=== PATIENT | male | born 1950 | race Caucasian/White ===

== ENCOUNTER 2017-02-19 15:02 | Inpatient (IN) | payer MEDICARE ==
[~2017-02-19] VITALS: Ht 190.5 cm; Wt 95.5 kg
[2017-02-19] MEDS ORDERED: SODIUM CHLORIDE FLUSH 10ML SYR IVF ONE (15:30)
[2017-02-19 16:12] LABS: ASPARTATE AMINO TRANSFERASE 58 U/L (15-37); BLOOD UREA NITROGEN 28 mg/dL (7-18)
[2017-02-19 16:18] LABS: IS PT STATUS REG ER OR PRE ER? YES
[2017-02-19] MEDS ORDERED: NITROGLYCERIN SINGLE TAB 0.4 MG SL ONE (16:57)
[2017-02-19] MEDS ORDERED: NITROGLYCERIN 0.4 MG BOTTLE (25 TABS) SL PRN ×2 (17:00→21:00)
[2017-02-19] MEDS ORDERED: SODIUM CHLORIDE 0.9%, 500ML IVBOLUS ONE (17:00)
[2017-02-19] MEDS ORDERED: OMNIPAQUE 350 MG/ML, 100ML BOTTLE ONE (17:44)
[2017-02-19] MEDS ORDERED: [UNRECOGNIZED DRUG - CODE] PO (18:06)
[2017-02-19] MEDS ORDERED: ASCO10004 PO (18:06)
[2017-02-19] MEDS ORDERED: CHOL10003 PO ×2 (18:06)
[2017-02-19] MEDS ORDERED: MAGN400T36 PO (18:06)
[2017-02-19] MEDS ORDERED: CLON0.3T4 PO (18:06)
[2017-02-19] MEDS ORDERED: [UNRECOGNIZED DRUG - CODE] PO (18:06)
[2017-02-19] MEDS ORDERED: NIAC500T9 PO (18:06)
[2017-02-19] MEDS ORDERED: CLOP75TA22 PO (18:06)
[2017-02-19] MEDS ORDERED: FUROSEMIDE 40 MG/4 ML ONE (20:29)
[2017-02-19] MEDS ORDERED: FUROSEMIDE 40 MG/4 ML IV ONE (20:30)
[2017-02-19] MEDS: LOSARTAN 50MG TABLET PO SCH (20:58)
[2017-02-19] MEDS: CARVEDILOL 6.25 MG TABLET PO SCH (20:58)
[2017-02-19] MEDS ORDERED: LABETALOL 5MG/ML, 20ML IVPush PRN (21:00)
[2017-02-19] MEDS ORDERED: ONDANSETRON 2MG/ML, 2ML IVPush PRN (21:00)
[2017-02-19] MEDS ORDERED: POLYETHYLENE GLYCOL 17 GM PACKET PO PRN (21:00)
[2017-02-19] MEDS ORDERED: morphine SULFATE 10 MG/ML, 1ML IVPush PRN (21:00)
[2017-02-19] MEDS ORDERED: ACETAMINOPHEN 325 MG TABLET PO PRN (21:00)
[2017-02-19] MEDS ORDERED: BISACODYL 10 MG SUPP PR PRN (21:00)
[2017-02-19] MEDS ORDERED: OXYcodone IR 5MG TABLET PO PRN (21:00)
[2017-02-19 22:34] VITALS: BP 152/84
[2017-02-19] MEDS: HEPARIN 5,000 UNITS/ML, 1ML SQ SCH (23:54)
[2017-02-19] MEDS: MAGNESIUM OXIDE 400 MG TABLET PO SCH (23:54)
[2017-02-19] MEDS: CHOLECALCIFEROL 1,000 UNIT TABLET PO SCH (23:54)
[2017-02-20 00:46] LABS: IS PT STATUS REG ER OR PRE ER? NO
[2017-02-20 01:49] VITALS: BP 150/88
[2017-02-20] MEDS: CARVEDILOL 6.25 MG TABLET PO SCH ×2 (05:41→17:00)
[2017-02-20] MEDS: ASPIRIN 325 MG TABLET EC PO SCH (05:41)
[2017-02-20 06:36] VITALS: BP 154/100
[2017-02-20 06:44] LABS: BLOOD UREA NITROGEN 27 mg/dL (7-18)
[2017-02-20 06:48] LABS: ASPARTATE AMINO TRANSFERASE 44 U/L (15-37)
[2017-02-20 06:51] LABS: IS PT STATUS REG ER OR PRE ER? NO
[2017-02-20] MEDS: SENNA/DOCUSATE TABLET PO SCH (09:00)
[2017-02-20] MEDS: NIACIN 500 MG TABLET.ER PO SCH (09:31)
[2017-02-20] MEDS: CHOLECALCIFEROL 1,000 UNIT TABLET PO SCH ×2 (09:31→20:46)
[2017-02-20] MEDS: HEPARIN 5,000 UNITS/ML, 1ML SQ SCH ×2 (09:31→16:59)
[2017-02-20] MEDS: FUROSEMIDE 20 MG/2 ML IV SCH ×2 (09:31→17:00)
[2017-02-20] MEDS: CLOPIDOGREL 75 MG TABLET PO SCH (09:32)
[2017-02-20] MEDS: LOSARTAN 50MG TABLET PO SCH ×2 (09:32→20:45)
[2017-02-20] MEDS: MAGNESIUM OXIDE 400 MG TABLET PO SCH ×2 (09:32→20:45)
[2017-02-20] MEDS: POTASSIUM CHLORIDE 20 MEQ TAB.ER.PRT PO SCH (09:32)
[2017-02-20] MEDS ORDERED: POTASSIUM CHLORIDE 20 MEQ TAB.ER.PRT PO ONE (11:00)
[2017-02-20] MEDS ORDERED: CEFTRIAXONE 1,000 MG in SODIUM CHLORIDE 0.9% 50 ML IV SCH (12:00)
[2017-02-20] MEDS: FLUTICASONE/VILANTEROL 200-25MCG/INH INH SCH (12:03)
[2017-02-20] MEDS: GUAIFENESIN ER 600 MG TABLET PO SCH ×2 (12:04→20:45)
[2017-02-20] MEDS: DOXYCYCLINE 100 MG in DEXTROSE 5% 250 ML IV SCH (12:04)
[2017-02-20 13:31] VITALS: BP 139/95
[2017-02-20] MEDS: CEFTRIAXONE PMX 1GM/50ML 50 ML IV SCH (14:08)
[2017-02-20 20:28] VITALS: BP 179/137
[2017-02-20 22:25] VITALS: BP 165/119
[2017-02-21] VITALS (7 sets, daily range): BP systolic 153–197; BP diastolic 93–121
[2017-02-21] MEDS: hydrALAzine 20 MG/ML, 1ML IVPush PRN ×3 (00:08→13:23)
[2017-02-21] MEDS: DOXYCYCLINE 100 MG in DEXTROSE 5% 250 ML IV SCH ×2 (00:08→12:35)
[2017-02-21] MEDS: HEPARIN 5,000 UNITS/ML, 1ML SQ SCH ×3 (01:15→17:26)
[2017-02-21] MEDS: CARVEDILOL 6.25 MG TABLET PO SCH (05:04)
[2017-02-21] MEDS: ASPIRIN 325 MG TABLET EC PO SCH (05:04)
[2017-02-21] MEDS: SENNA/DOCUSATE TABLET PO SCH (09:00)
[2017-02-21] MEDS: FUROSEMIDE 20 MG/2 ML IV SCH ×2 (09:57→17:25)
[2017-02-21] MEDS: FLUTICASONE/VILANTEROL 200-25MCG/INH INH SCH (09:58)
[2017-02-21] MEDS: MAGNESIUM OXIDE 400 MG TABLET PO SCH ×2 (09:59→20:22)
[2017-02-21] MEDS: GUAIFENESIN ER 600 MG TABLET PO SCH ×2 (09:59→20:22)
[2017-02-21] MEDS: NIACIN 500 MG TABLET.ER PO SCH (09:59)
[2017-02-21] MEDS: CHOLECALCIFEROL 1,000 UNIT TABLET PO SCH ×2 (09:59→20:22)
[2017-02-21] MEDS: POTASSIUM CHLORIDE 20 MEQ TAB.ER.PRT PO SCH (09:59)
[2017-02-21] MEDS: LOSARTAN 50MG TABLET PO SCH (09:59)
[2017-02-21] MEDS: CLOPIDOGREL 75 MG TABLET PO SCH (10:00)
[2017-02-21] MEDS ORDERED: CARVEDILOL 12.5 MG TABLET PO SCH (11:30)
[2017-02-21] MEDS: CEFTRIAXONE PMX 1GM/50ML 50 ML IV SCH (14:24)
[2017-02-22] MEDS: HEPARIN 5,000 UNITS/ML, 1ML SQ SCH ×2 (00:37→08:02)
[2017-02-22] MEDS: DOXYCYCLINE 100 MG in DEXTROSE 5% 250 ML IV SCH (00:37)
[2017-02-22 00:41] VITALS: BP 189/99
[2017-02-22] MEDS: hydrALAzine 20 MG/ML, 1ML IVPush PRN ×2 (00:53→06:41)
[2017-02-22 02:00] VITALS: BP 160/99
[2017-02-22 05:47] LABS: BLOOD UREA NITROGEN 25 mg/dL (7-18)
[2017-02-22 06:31] VITALS: BP 189/125
[2017-02-22] MEDS: ASPIRIN 325 MG TABLET EC PO SCH (08:00)
[2017-02-22] MEDS: CLOPIDOGREL 75 MG TABLET PO SCH (08:02)
[2017-02-22] MEDS: POTASSIUM CHLORIDE 20 MEQ TAB.ER.PRT PO SCH (08:02)
[2017-02-22] MEDS: CHOLECALCIFEROL 1,000 UNIT TABLET PO SCH (08:02)
[2017-02-22] MEDS: FUROSEMIDE 20 MG/2 ML IV SCH (08:02)
[2017-02-22] MEDS: GUAIFENESIN ER 600 MG TABLET PO SCH (08:02)
[2017-02-22] MEDS: MAGNESIUM OXIDE 400 MG TABLET PO SCH (08:02)
[2017-02-22] MEDS: NIACIN 500 MG TABLET.ER PO SCH (08:02)
[2017-02-22] MEDS: FLUTICASONE/VILANTEROL 200-25MCG/INH INH SCH (08:02)
[2017-02-22] MEDS: SENNA/DOCUSATE TABLET PO SCH (08:03)
[2017-02-22] MEDS ORDERED: ASPIRIN 81 MG TABLET CHEW PO SCH (09:00)
[2017-02-22] MEDS ORDERED: FLUT1BLS INH (11:20)
[2017-02-22] MEDS ORDERED: ASPI-515 PO (11:20)
[2017-02-22] MEDS ORDERED: FAMO-79 PO (11:20)
[2017-02-22] MEDS ORDERED: PRED5TAB PO (11:20)
[2017-02-22] MEDS ORDERED: LOSA50TA2 PO (11:20)
[2017-02-22] MEDS ORDERED: LORA10TA3 PO (11:20)
[2017-02-22] MEDS ORDERED: FURO40TA6 PO (11:20)
[2017-02-22] MEDS ORDERED: CEFD300C37 PO (11:20)
[2017-02-22] MEDS ORDERED: POTA20TA6 PO (11:20)
[2017-02-22] MEDS ORDERED: GUAI5SYR PO (11:20)
[2017-02-22] MEDS ORDERED: DOXY-168 PO (11:20)
[2017-02-22] MEDS ORDERED: CARV12.52 PO (11:20)
[2017-02-22] MEDS ORDERED: ATOR10TA9 PO (11:30)
[2017-02-22 11:50] VITALS: BP 128/71
== END 2017-02-22 13:00 | disposition home or self-care (01) | DRG 682 ==
LOC: ED 18:28 → EDIP 18:59 → 5SO 22:20 → DCLOUNGE 02-22 11:55
PROVIDERS: ADMIT Internal Medicine; ATTEND Internal Medicine
DX: N17.0 Acute kidney failure with tubular necrosis (principal); I50.23 Acute on chronic systolic (congestive) heart failure; I16.9 Hypertensive crisis, unspecified; I11.0 Hypertensive heart disease with heart failure; I25.2 Old myocardial infarction; R59.0 Localized enlarged lymph nodes; I25.10 Atherosclerotic heart disease of native coronary artery without angina pectoris; L40.9 Psoriasis, unspecified; J45.909 Unspecified asthma, uncomplicated; Z77.098 Contact with and (suspected) exposure to other hazardous, chiefly nonmedicinal, chemicals; Z86.73 Personal history of transient ischemic attack (TIA), and cerebral infarction without residual deficits
CPT/HCPCS: 36415; 71010; 71275; 80048; 80053; 80061; 81003; 83036; 83605; 83735; 83880; 84145; 84439; 84443; 84484; 85025; 93005; 93306; 96365; 96366; 96375; J0696; J1644; J1940; J7060; Q9967; J0360; J7040; J7050

== ENCOUNTER → 2017-03-11 | Outpatient (CLI) | payer MEDICARE ==
[~2017-03-11] MED LIST: ASCO10004 PO; ASPI-515 PO; ATOR10TA9 PO; CARV12.52 PO; CEFD300C37 PO; CHOL10003 PO; CLON0.3T4 PO; CLOP75TA22 PO; DOXY-168 PO; FAMO-79 PO; FLUT1BLS INH; FURO40TA6 PO; GUAI5SYR PO; LORA10TA3 PO; LOSA50TA2 PO; MAGN400T36 PO; NIAC500T9 PO; POTA20TA6 PO; PRED5TAB PO; [UNRECOGNIZED DRUG - CODE] PO; [UNRECOGNIZED DRUG - CODE] PO
== END | disposition home or self-care (01) ==
LOC: PETCFH 12:39
PROVIDERS: ATTEND Internal Medicine Critical Care Medicine
DX: I71.4 Abdominal aortic aneurysm, without rupture (principal); R59.1 Generalized enlarged lymph nodes; I51.7 Cardiomegaly
CPT/HCPCS: 78815; A9552

== ENCOUNTER → 2017-03-17 | Outpatient (CLI) | payer MEDICARE | LOC: CARD 15:00 | PROVIDERS: ATTEND Internal Medicine Critical Care Medicine | DX: Z02.9 Encounter for administrative examinations, unspecified (principal) ==

== ENCOUNTER 2017-04-22 16:20 | Inpatient (IN) | payer MEDICARE ==
[~2017-04-22] VITALS: Ht 190.5 cm; Wt 93.0 kg
[~2017-04-22 16:20] MED LIST changes: -CLOP75TA22 PO; +CLOP75TA52 PO; -DOXY-168 PO; +DOXY100T10 PO
[2017-04-22] MEDS ORDERED: SODIUM CHLORIDE FLUSH 10ML SYR IVF ONE (16:30)
[2017-04-22] MEDS ORDERED: ALBUTEROL SULFATE 2.5 MG/3 ML NPPB ONE (16:30)
[2017-04-22] MEDS ORDERED: ALBUTEROL SULFATE 2.5 MG/3 ML ONE (17:01)
[2017-04-22 17:06] LABS: ASPARTATE AMINO TRANSFERASE 144 U/L (15-37); BLOOD UREA NITROGEN 28 mg/dL (7-18)
[2017-04-22 17:10] LABS: IS PT STATUS REG ER OR PRE ER? YES
[2017-04-22] MEDS ORDERED: ASPIRIN 81 MG TABLET CHEW ONE ×2 (17:15→17:19)
[2017-04-22 17:21] LABS: HEMATOCRIT 46.7 % (39.2-51.8); HEMOGLOBIN 15.4 g/dL (13.7-18.0); WHITE BLOOD COUNT 11.3 x10^3/uL (3.4-10)
[2017-04-22 17:23] LABS: DIFF TOTAL CELLS COUNTED 100 CELL DIFF
[2017-04-22 17:25] LABS: VERIFY COUNTS? YES
[2017-04-22] MEDS ORDERED: ASPIRIN 81 MG TABLET CHEW PO ONE (17:30)
[2017-04-22] MEDS ORDERED: POLYETHYLENE GLYCOL 17 GM PACKET PO PRN (19:00)
[2017-04-22] MEDS ORDERED: ONDANSETRON 2MG/ML, 2ML IVPush PRN (19:00)
[2017-04-22] MEDS ORDERED: BISACODYL 10 MG SUPP PR PRN (19:00)
[2017-04-22] MEDS ORDERED: FUROSEMIDE 40 MG/4 ML ONE (19:24)
[2017-04-22] MEDS: FUROSEMIDE 40 MG/4 ML IV SCH (19:42)
[2017-04-22] MEDS ORDERED: hydrALAzine 20 MG/ML, 1ML ONE (19:51)
[2017-04-22] MEDS: CARVEDILOL 25 MG TABLET PO SCH (22:48)
[2017-04-22] MEDS: HEPARIN 5,000 UNITS/ML, 1ML SQ SCH (22:48)
[2017-04-22] MEDS: MAGNESIUM OXIDE 400 MG TABLET PO SCH (22:49)
[2017-04-22] MEDS: ATORVASTATIN 10 MG TABLET PO SCH (22:49)
[2017-04-22] MEDS: LOSARTAN 50MG TABLET PO SCH (22:49)
[2017-04-22] MEDS: FAMOTIDINE 20 MG TABLET PO SCH (22:50)
[2017-04-22] MEDS: CHOLECALCIFEROL 1,000 UNIT TABLET PO SCH (22:50)
[2017-04-22 22:56] VITALS: BP 162/90
[2017-04-22 23:23] LABS: IS PT STATUS REG ER OR PRE ER? NO
[2017-04-23] MEDS: SODIUM CHLORIDE FLUSH 10ML SYR IVF SCH ×2 (00:20→08:07)
[2017-04-23 00:50] VITALS: BP 157/99
[2017-04-23 05:07] LABS: HEMATOCRIT 41.3 % (39.2-51.8); HEMOGLOBIN 13.7 g/dL (13.7-18.0)
[2017-04-23 05:09] LABS: ASPARTATE AMINO TRANSFERASE 152 U/L (15-37); BLOOD UREA NITROGEN 31 mg/dL (7-18); IS PT STATUS REG ER OR PRE ER? NO
[2017-04-23] MEDS: POTASSIUM CHLORIDE 20 MEQ TAB.ER.PRT PO SCH (08:06)
[2017-04-23] MEDS: FUROSEMIDE 40 MG/4 ML IV SCH ×2 (08:06→17:02)
[2017-04-23] MEDS: HEPARIN 5,000 UNITS/ML, 1ML SQ SCH ×3 (08:06→23:50)
[2017-04-23] MEDS: CARVEDILOL 25 MG TABLET PO SCH ×2 (08:08→21:00)
[2017-04-23] MEDS: ASPIRIN 81 MG TABLET EC PO SCH (08:09)
[2017-04-23] MEDS: MAGNESIUM OXIDE 400 MG TABLET PO SCH ×2 (08:09→21:18)
[2017-04-23] MEDS: LOSARTAN 50MG TABLET PO SCH ×2 (08:09→21:00)
[2017-04-23] MEDS: NIACIN 500 MG TABLET.ER PO SCH (08:10)
[2017-04-23] MEDS: FAMOTIDINE 20 MG TABLET PO SCH ×2 (08:10→21:00)
[2017-04-23] MEDS: CHOLECALCIFEROL 1,000 UNIT TABLET PO SCH ×2 (08:11→21:18)
[2017-04-23] MEDS: ASCORBIC ACID 500 MG TABLET PO SCH (08:11)
[2017-04-23] MEDS: SENNA/DOCUSATE TABLET PO SCH (08:11)
[2017-04-23] MEDS: CLOPIDOGREL 75 MG TABLET PO SCH (08:11)
[2017-04-23] MEDS: LORATADINE 10 MG TABLET PO SCH (08:13)
[2017-04-23] MEDS ORDERED: POTASSIUM CHLORIDE 20 MEQ TAB.ER.PRT PO ONE ×2 (08:30→10:30)
[2017-04-23 08:48] VITALS: BP 140/85
[2017-04-23] MEDS: FLUTICASONE/VILANTEROL 200-25MCG/INH INH SCH (09:00)
[2017-04-23 11:03] LABS: IS PT STATUS REG ER OR PRE ER? NO
[2017-04-23 13:56] VITALS: BP 121/77
[2017-04-23 19:03] VITALS: BP 145/88
[2017-04-23 20:05] LABS: IS PT STATUS REG ER OR PRE ER? NO
[2017-04-23] MEDS: ATORVASTATIN 10 MG TABLET PO SCH (21:00)
[2017-04-24] VITALS (8 sets, daily range): BP systolic 150–197; BP diastolic 90–136
[2017-04-24] MEDS: hydrALAzine 20 MG/ML, 1ML IVPush PRN (01:03)
[2017-04-24 05:02] LABS: HEMATOCRIT 44.5 % (39.2-51.8); HEMOGLOBIN 14.7 g/dL (13.7-18.0); WHITE BLOOD COUNT 7.2 x10^3/uL (3.4-10)
[2017-04-24 05:24] LABS: ASPARTATE AMINO TRANSFERASE 103 U/L (15-37); BLOOD UREA NITROGEN 30 mg/dL (7-18)
[2017-04-24] MEDS: SENNA/DOCUSATE TABLET PO SCH (09:00)
[2017-04-24] MEDS: FAMOTIDINE 20 MG TABLET PO SCH ×2 (09:00→21:00)
[2017-04-24] MEDS: SODIUM CHLORIDE FLUSH 10ML SYR IVF SCH ×3 (09:00→21:33)
[2017-04-24] MEDS: CARVEDILOL 25 MG TABLET PO SCH ×2 (09:00→21:00)
[2017-04-24] MEDS: FLUTICASONE/VILANTEROL 200-25MCG/INH INH SCH (09:00)
[2017-04-24] MEDS: ASPIRIN 81 MG TABLET EC PO SCH (09:00)
[2017-04-24] MEDS: LOSARTAN 50MG TABLET PO SCH ×2 (09:00→21:00)
[2017-04-24] MEDS: HEPARIN 5,000 UNITS/ML, 1ML SQ SCH ×3 (09:58→23:27)
[2017-04-24] MEDS: FUROSEMIDE 40 MG/4 ML IV SCH (09:58)
[2017-04-24] MEDS ORDERED: POTASSIUM CHLORIDE 40 MEQ in SODIUM CHLORIDE 0.9% 500 ML IV ONE (10:00)
[2017-04-24] MEDS: LORATADINE 10 MG TABLET PO SCH (10:01)
[2017-04-24] MEDS: POTASSIUM CHLORIDE 20 MEQ TAB.ER.PRT PO SCH (10:01)
[2017-04-24] MEDS: NIACIN 500 MG TABLET.ER PO SCH (10:02)
[2017-04-24] MEDS: MAGNESIUM OXIDE 400 MG TABLET PO SCH ×2 (10:02→21:33)
[2017-04-24] MEDS: ASCORBIC ACID 500 MG TABLET PO SCH (10:03)
[2017-04-24] MEDS: CLOPIDOGREL 75 MG TABLET PO SCH (10:03)
[2017-04-24] MEDS: CHOLECALCIFEROL 1,000 UNIT TABLET PO SCH ×2 (10:04→21:34)
[2017-04-24] MEDS ORDERED: POTASSIUM CHLORIDE 20 MEQ TAB.ER.PRT PO ONE (11:00)
[2017-04-24] MEDS: ENALAPRILAT 1.25 MG/ML, 2ML IV PRN ×2 (13:30→23:27)
[2017-04-24 14:00] LABS: IS PT STATUS REG ER OR PRE ER? NO
[2017-04-24] MEDS ORDERED: ACETAMINOPHEN 325 MG TABLET PO PRN (18:30)
[2017-04-24] MEDS: ATORVASTATIN 10 MG TABLET PO SCH (21:00)
[2017-04-25 00:55] VITALS: BP 150/91
[2017-04-25 05:00] LABS: BLOOD UREA NITROGEN 28 mg/dL (7-18)
[2017-04-25 05:03] LABS: ASPARTATE AMINO TRANSFERASE 74 U/L (15-37)
[2017-04-25] MEDS: HEPARIN 5,000 UNITS/ML, 1ML SQ SCH ×3 (06:27→23:10)
[2017-04-25 07:06] VITALS: BP 155/96
[2017-04-25] MEDS ORDERED: SENNA/DOCUSATE TABLET PO PRN (08:30)
[2017-04-25] MEDS: FLUTICASONE/VILANTEROL 200-25MCG/INH INH SCH (09:00)
[2017-04-25] MEDS: CHOLECALCIFEROL 1,000 UNIT TABLET PO SCH ×2 (09:00→20:42)
[2017-04-25] MEDS: CARVEDILOL 25 MG TABLET PO SCH ×2 (09:00→20:41)
[2017-04-25] MEDS: FAMOTIDINE 20 MG TABLET PO SCH ×2 (09:00→20:42)
[2017-04-25] MEDS: LOSARTAN 50MG TABLET PO SCH ×2 (09:00→20:42)
[2017-04-25] MEDS: ASPIRIN 81 MG TABLET EC PO SCH (09:00)
[2017-04-25] MEDS: FUROSEMIDE 40 MG TABLET PO SCH (09:08)
[2017-04-25] MEDS: NIACIN 500 MG TABLET.ER PO SCH (09:08)
[2017-04-25] MEDS: ASCORBIC ACID 500 MG TABLET PO SCH (09:08)
[2017-04-25] MEDS: MAGNESIUM OXIDE 400 MG TABLET PO SCH ×2 (09:08→20:42)
[2017-04-25] MEDS: LORATADINE 10 MG TABLET PO SCH (09:08)
[2017-04-25] MEDS: POTASSIUM CHLORIDE 20 MEQ TAB.ER.PRT PO SCH (09:08)
[2017-04-25] MEDS: CLOPIDOGREL 75 MG TABLET PO SCH (09:08)
[2017-04-25] MEDS: SODIUM CHLORIDE FLUSH 10ML SYR IVF SCH ×2 (09:09→20:41)
[2017-04-25 13:47] VITALS: BP 156/104
[2017-04-25 18:34] VITALS: BP 162/102
[2017-04-25] MEDS: ATORVASTATIN 10 MG TABLET PO SCH (20:41)
[2017-04-26 00:45] VITALS: BP 180/119
[2017-04-26] MEDS: ENALAPRILAT 1.25 MG/ML, 2ML IV PRN (00:58)
[2017-04-26] MEDS: hydrALAzine 20 MG/ML, 1ML IVPush PRN (02:38)
[2017-04-26 02:43] VITALS: BP 181/133
[2017-04-26 04:58] LABS: BLOOD UREA NITROGEN 26 mg/dL (7-18)
[2017-04-26 07:02] VITALS: BP 157/94
[2017-04-26] MEDS: HEPARIN 5,000 UNITS/ML, 1ML SQ SCH ×3 (08:39→23:47)
[2017-04-26] MEDS: POTASSIUM CHLORIDE 20 MEQ TAB.ER.PRT PO SCH (08:39)
[2017-04-26] MEDS: CLOPIDOGREL 75 MG TABLET PO SCH (08:40)
[2017-04-26] MEDS: ASCORBIC ACID 500 MG TABLET PO SCH (08:40)
[2017-04-26] MEDS: FUROSEMIDE 40 MG TABLET PO SCH (08:40)
[2017-04-26] MEDS: NIACIN 500 MG TABLET.ER PO SCH (08:40)
[2017-04-26] MEDS: CHOLECALCIFEROL 1,000 UNIT TABLET PO SCH ×2 (08:40→19:31)
[2017-04-26] MEDS: MAGNESIUM OXIDE 400 MG TABLET PO SCH ×2 (08:40→19:31)
[2017-04-26] MEDS: SODIUM CHLORIDE FLUSH 10ML SYR IVF SCH ×2 (08:41→19:31)
[2017-04-26] MEDS: LOSARTAN 50MG TABLET PO SCH ×2 (08:42→19:32)
[2017-04-26] MEDS: CARVEDILOL 25 MG TABLET PO SCH ×2 (08:42→19:31)
[2017-04-26] MEDS: ASPIRIN 81 MG TABLET EC PO SCH (08:42)
[2017-04-26] MEDS: FAMOTIDINE 20 MG TABLET PO SCH ×2 (08:42→19:32)
[2017-04-26] MEDS: FLUTICASONE/VILANTEROL 200-25MCG/INH INH SCH (09:16)
[2017-04-26] MEDS: LORATADINE 10 MG TABLET PO SCH (09:16)
[2017-04-26 13:53] VITALS: BP 162/91
[2017-04-26] MEDS: ATORVASTATIN 10 MG TABLET PO SCH (19:32)
[2017-04-26 20:01] VITALS: BP 163/99
[2017-04-27 01:25] VITALS: BP 163/84
[2017-04-27 07:23] VITALS: BP 181/121
[2017-04-27] MEDS: HEPARIN 5,000 UNITS/ML, 1ML SQ SCH ×2 (08:11→16:00)
[2017-04-27] MEDS: FLUTICASONE/VILANTEROL 200-25MCG/INH INH SCH (08:11)
[2017-04-27] MEDS: POTASSIUM CHLORIDE 20 MEQ TAB.ER.PRT PO SCH (08:11)
[2017-04-27] MEDS: CLOPIDOGREL 75 MG TABLET PO SCH (08:12)
[2017-04-27] MEDS: CHOLECALCIFEROL 1,000 UNIT TABLET PO SCH (08:12)
[2017-04-27] MEDS: ASCORBIC ACID 500 MG TABLET PO SCH (08:12)
[2017-04-27] MEDS: MAGNESIUM OXIDE 400 MG TABLET PO SCH (08:12)
[2017-04-27] MEDS: NIACIN 500 MG TABLET.ER PO SCH (08:12)
[2017-04-27] MEDS: FUROSEMIDE 40 MG TABLET PO SCH (08:12)
[2017-04-27] MEDS: LORATADINE 10 MG TABLET PO SCH (08:12)
[2017-04-27] MEDS: ASPIRIN 81 MG TABLET EC PO SCH (08:16)
[2017-04-27] MEDS: CARVEDILOL 25 MG TABLET PO SCH (08:16)
[2017-04-27] MEDS: LOSARTAN 50MG TABLET PO SCH (08:16)
[2017-04-27] MEDS: FAMOTIDINE 20 MG TABLET PO SCH (08:16)
[2017-04-27] MEDS: SODIUM CHLORIDE FLUSH 10ML SYR IVF SCH (08:18)
[2017-04-27 13:54] VITALS: BP 167/97
== END 2017-04-27 17:28 | DRG 280 ==
LOC: ED 18:44 → EDIP 18:45 → ED 18:54 → 5SO 20:32
PROVIDERS: ADMIT Family Medicine; ATTEND Family Medicine
DX: I21.3 ST elevation (STEMI) myocardial infarction of unspecified site (principal); I50.23 Acute on chronic systolic (congestive) heart failure; N17.0 Acute kidney failure with tubular necrosis; E46 Unspecified protein-calorie malnutrition; I42.9 Cardiomyopathy, unspecified; I16.0 Hypertensive urgency; E78.5 Hyperlipidemia, unspecified; E87.6 Hypokalemia; I27.2 Other secondary pulmonary hypertension; M10.9 Gout, unspecified; L40.50 Arthropathic psoriasis, unspecified; Z68.25 Body mass index [BMI] 25.0-25.9, adult; Z88.0 Allergy status to penicillin; D75.89 Other specified diseases of blood and blood-forming organs; I11.0 Hypertensive heart disease with heart failure; I25.10 Atherosclerotic heart disease of native coronary artery without angina pectoris; I34.0 Nonrheumatic mitral (valve) insufficiency; I71.4 Abdominal aortic aneurysm, without rupture; I87.8 Other specified disorders of veins; J45.909 Unspecified asthma, uncomplicated; K76.1 Chronic passive congestion of liver; Z66 Do not resuscitate; Z80.9 Family history of malignant neoplasm, unspecified; Z86.73 Personal history of transient ischemic attack (TIA), and cerebral infarction without residual deficits; Z87.891 Personal history of nicotine dependence; Z98.61 Coronary angioplasty status
CPT/HCPCS: 36415; 71010; 80048; 80053; 82607; 82746; 83735; 83880; 84132; 84484; 85025; 85610; 93005; 94640; 99285; J1644; J1940; J3480; J7613; J0360; J7040

== ENCOUNTER → 2017-07-30 | Outpatient (CLI) | payer MEDICARE | END | disposition home or self-care (01) | LOC: WOUND 12:36 | PROVIDERS: ATTEND Family Medicine | DX: I87.2 Venous insufficiency (chronic) (peripheral) (principal); L97.821 Non-pressure chronic ulcer of other part of left lower leg limited to breakdown of skin; L97.811 Non-pressure chronic ulcer of other part of right lower leg limited to breakdown of skin; I11.0 Hypertensive heart disease with heart failure; I50.23 Acute on chronic systolic (congestive) heart failure; I25.10 Atherosclerotic heart disease of native coronary artery without angina pectoris; E78.5 Hyperlipidemia, unspecified; J45.909 Unspecified asthma, uncomplicated; I21.3 ST elevation (STEMI) myocardial infarction of unspecified site; Z86.73 Personal history of transient ischemic attack (TIA), and cerebral infarction without residual deficits; Z87.891 Personal history of nicotine dependence | CPT/HCPCS: 97597; 97598; G0463; WOU0463 ==

== ENCOUNTER → 2017-08-06 | Outpatient (CLI) | payer MEDICARE | END | disposition home or self-care (01) | LOC: WOUND 13:55 | PROVIDERS: ATTEND Family Medicine | DX: I87.2 Venous insufficiency (chronic) (peripheral) (principal); L97.821 Non-pressure chronic ulcer of other part of left lower leg limited to breakdown of skin; L97.811 Non-pressure chronic ulcer of other part of right lower leg limited to breakdown of skin; I25.10 Atherosclerotic heart disease of native coronary artery without angina pectoris; I11.0 Hypertensive heart disease with heart failure; I50.23 Acute on chronic systolic (congestive) heart failure; I21.3 ST elevation (STEMI) myocardial infarction of unspecified site; J45.909 Unspecified asthma, uncomplicated; E78.5 Hyperlipidemia, unspecified; Z86.73 Personal history of transient ischemic attack (TIA), and cerebral infarction without residual deficits; Z87.891 Personal history of nicotine dependence | CPT/HCPCS: 97597; 97598 ==

== ENCOUNTER → 2017-08-13 | Outpatient (CLI) | payer MEDICARE | END | disposition home or self-care (01) | LOC: WOUND 11:30 | PROVIDERS: ATTEND Family Medicine | DX: L97.821 Non-pressure chronic ulcer of other part of left lower leg limited to breakdown of skin (principal); L97.811 Non-pressure chronic ulcer of other part of right lower leg limited to breakdown of skin; I11.0 Hypertensive heart disease with heart failure; I50.22 Chronic systolic (congestive) heart failure; G47.30 Sleep apnea, unspecified; E78.5 Hyperlipidemia, unspecified; J45.909 Unspecified asthma, uncomplicated; I25.2 Old myocardial infarction; I25.10 Atherosclerotic heart disease of native coronary artery without angina pectoris; Z87.891 Personal history of nicotine dependence; Z86.73 Personal history of transient ischemic attack (TIA), and cerebral infarction without residual deficits; Z98.62 Peripheral vascular angioplasty status | CPT/HCPCS: 97597 ==

== ENCOUNTER → 2017-08-20 | Outpatient (CLI) | payer MEDICARE | END | disposition home or self-care (01) | LOC: WOUND 10:08 | PROVIDERS: ATTEND Family Medicine | DX: I87.2 Venous insufficiency (chronic) (peripheral) (principal); L97.821 Non-pressure chronic ulcer of other part of left lower leg limited to breakdown of skin; L97.811 Non-pressure chronic ulcer of other part of right lower leg limited to breakdown of skin; I11.0 Hypertensive heart disease with heart failure; I50.23 Acute on chronic systolic (congestive) heart failure; I25.2 Old myocardial infarction; I25.10 Atherosclerotic heart disease of native coronary artery without angina pectoris; E78.5 Hyperlipidemia, unspecified; J45.909 Unspecified asthma, uncomplicated; G47.30 Sleep apnea, unspecified; Z98.62 Peripheral vascular angioplasty status; Z87.891 Personal history of nicotine dependence; Z86.73 Personal history of transient ischemic attack (TIA), and cerebral infarction without residual deficits | CPT/HCPCS: 97597; 97598 ==

== ENCOUNTER → 2017-08-26 | Outpatient (CLI) | payer MEDICARE | LOC: CVU 11:54 | PROVIDERS: ATTEND Family Medicine | DX: I70.203 Unspecified atherosclerosis of native arteries of extremities, bilateral legs (principal); L97.811 Non-pressure chronic ulcer of other part of right lower leg limited to breakdown of skin; L97.821 Non-pressure chronic ulcer of other part of left lower leg limited to breakdown of skin; I10 Essential (primary) hypertension; I25.2 Old myocardial infarction; Z86.73 Personal history of transient ischemic attack (TIA), and cerebral infarction without residual deficits; Z95.5 Presence of coronary angioplasty implant and graft | CPT/HCPCS: 93922; 93925; 93970 ==

== ENCOUNTER → 2017-08-27 | Outpatient (CLI) | payer MEDICARE | END | disposition home or self-care (01) | LOC: WOUND 10:28 | PROVIDERS: ATTEND Family Medicine | DX: I87.2 Venous insufficiency (chronic) (peripheral) (principal); L97.821 Non-pressure chronic ulcer of other part of left lower leg limited to breakdown of skin; L97.811 Non-pressure chronic ulcer of other part of right lower leg limited to breakdown of skin; I11.0 Hypertensive heart disease with heart failure; I50.23 Acute on chronic systolic (congestive) heart failure; I25.2 Old myocardial infarction; G47.30 Sleep apnea, unspecified; J45.909 Unspecified asthma, uncomplicated; E78.5 Hyperlipidemia, unspecified; Z86.73 Personal history of transient ischemic attack (TIA), and cerebral infarction without residual deficits; Z87.891 Personal history of nicotine dependence | CPT/HCPCS: 11042; 97597 ==

== ENCOUNTER → 2017-09-03 | Outpatient (CLI) | payer MEDICARE | END | disposition home or self-care (01) | LOC: WOUND 10:29 | PROVIDERS: ATTEND Internal Medicine Cardiovascular Disease | DX: I87.2 Venous insufficiency (chronic) (peripheral) (principal); L97.821 Non-pressure chronic ulcer of other part of left lower leg limited to breakdown of skin; L97.811 Non-pressure chronic ulcer of other part of right lower leg limited to breakdown of skin; I11.0 Hypertensive heart disease with heart failure; I50.23 Acute on chronic systolic (congestive) heart failure; I25.2 Old myocardial infarction; G47.30 Sleep apnea, unspecified; J45.909 Unspecified asthma, uncomplicated; I25.10 Atherosclerotic heart disease of native coronary artery without angina pectoris; E78.5 Hyperlipidemia, unspecified; Z87.891 Personal history of nicotine dependence; Z95.5 Presence of coronary angioplasty implant and graft; Z86.73 Personal history of transient ischemic attack (TIA), and cerebral infarction without residual deficits | CPT/HCPCS: 29581 ==

== ENCOUNTER → 2017-09-17 | Outpatient (CLI) | payer MEDICARE | END | disposition home or self-care (01) | LOC: WOUND 12:47 | PROVIDERS: ATTEND Family Medicine | DX: I87.2 Venous insufficiency (chronic) (peripheral) (principal); L97.821 Non-pressure chronic ulcer of other part of left lower leg limited to breakdown of skin; L97.811 Non-pressure chronic ulcer of other part of right lower leg limited to breakdown of skin; I11.0 Hypertensive heart disease with heart failure; I50.23 Acute on chronic systolic (congestive) heart failure; I25.10 Atherosclerotic heart disease of native coronary artery without angina pectoris; I25.2 Old myocardial infarction; J45.909 Unspecified asthma, uncomplicated; G47.30 Sleep apnea, unspecified; E78.5 Hyperlipidemia, unspecified; Z87.891 Personal history of nicotine dependence; Z86.73 Personal history of transient ischemic attack (TIA), and cerebral infarction without residual deficits; Z98.62 Peripheral vascular angioplasty status | CPT/HCPCS: 11042; 29581 ==

== ENCOUNTER → 2017-09-24 | Outpatient (CLI) | payer MEDICARE | END | disposition home or self-care (01) | LOC: WOUND 13:00 | PROVIDERS: ATTEND Family Medicine | DX: I87.2 Venous insufficiency (chronic) (peripheral) (principal); L97.811 Non-pressure chronic ulcer of other part of right lower leg limited to breakdown of skin; L97.821 Non-pressure chronic ulcer of other part of left lower leg limited to breakdown of skin; I11.0 Hypertensive heart disease with heart failure; I50.23 Acute on chronic systolic (congestive) heart failure; E78.5 Hyperlipidemia, unspecified; I25.10 Atherosclerotic heart disease of native coronary artery without angina pectoris; I25.2 Old myocardial infarction; G47.30 Sleep apnea, unspecified; J45.909 Unspecified asthma, uncomplicated; Z87.891 Personal history of nicotine dependence; Z86.73 Personal history of transient ischemic attack (TIA), and cerebral infarction without residual deficits; Z98.62 Peripheral vascular angioplasty status | CPT/HCPCS: 97597 ==

== ENCOUNTER 2017-12-14 17:25 | Inpatient (IN) | payer MEDICARE ==
[~2017-12-14] VITALS: Ht 190.5 cm; Wt 105.7 kg
[2017-12-14] MEDS ORDERED: SODIUM CHLORIDE FLUSH 10ML SYR IVF ONE (18:00)
[2017-12-14] MEDS ORDERED: ASPIRIN 81 MG TABLET CHEW PO ONE (18:00)
[2017-12-14] MEDS ORDERED: NITROGLYCERIN OINT 2%, 1GM TP ONE ×2 (18:00→18:27)
[2017-12-14 18:17] LABS: BASOPHILS # (AUTO) 0.02 x10^3/uL (0-0.1); BASOPHILS % (AUTO) 0 % (0-1); EOSINOPHILS # (AUTO) 0.12 x10^3/uL (0-0.4); EOSINOPHILS % (AUTO) 2 % (1-7); LYMPHOCYTES # (AUTO) 1.43 x10^3/uL (1-3.4); LYMPHOCYTES % (AUTO) 19 % (22-44); MD NO; MEAN CORPUSCULAR HEMOGLOBIN 32.7 pg (27.5-34.5); MEAN CORPUSCULAR HGB CONC 33.9 g/dL (33.2-36.2); MEAN CORPUSCULAR VOLUME 96.5 fL (81-97); MEAN PLATELET VOLUME 7.6 fL (7.4-10.4); MONOCYTES % (AUTO) 11 % (2-9); NEUTROPHILS # (AUTO) 5.07 x10^3/uL (1.8-6.8); NEUTROPHILS % (AUTO) 68 % (42-75); PLATELET COUNT 298 x10^3/uL (130-400); RED BLOOD COUNT 4.77 x10^6/uL (4.38-5.82); RED CELL DISTRIBUTION WIDTH 12.9 % (9.4-14.8)
[2017-12-14 18:22] LABS: ALANINE AMINOTRANSFERASE 36 U/L (12-78); ALBUMIN 3.6 g/dL (3.4-5.0); ANION GAP 8 mmol/L (5-15); CALCIUM 8.9 mg/dL (8.5-10.1); CHLORIDE 106 mmol/L (98-107); CREATININE 1.25 mg/dL (0.7-1.3)
[2017-12-14 18:27] LABS: ALKALINE PHOSPHATASE 93 U/L (45-117); BILIRUBIN,TOTAL 0.7 mg/dL (0.2-1.0); TOTAL PROTEIN 7.8 g/dL (6.4-8.2)
[2017-12-14] MEDS ORDERED: ASPIRIN 81 MG TABLET CHEW ONE (18:27)
[2017-12-14] MEDS ORDERED: NITROGLYCERIN SINGLE TAB 0.4 MG SL ONE (18:27)
[2017-12-14] MEDS: NITROGLYCERIN SINGLE TAB 0.4 MG SL PRN ×3 (18:29→18:40)
[2017-12-14] MEDS ORDERED: HEPARIN 5,000 UNITS/ML, 1ML ONE (18:55)
[2017-12-14] MEDS ORDERED: METOPROLOL TARTRATE 50 MG TABLET ONE (18:56)
[2017-12-14] MEDS ORDERED: HEPARIN 5,000 UNITS/ML, 1ML IV PRN ×2 (19:00→19:30)
[2017-12-14] MEDS ORDERED: METOPROLOL TARTRATE 50 MG TABLET PO ONE (19:00)
[2017-12-14] MEDS ORDERED: HEPARIN 25,000 UNITS/500ML PMX 500 ML IV PRN ×2 (19:00→19:30)
[2017-12-14] MEDS ORDERED: HEPARIN 5,000 UNITS/ML, 1ML IV ONE ×2 (19:00→19:30)
[2017-12-14] MEDS ORDERED: HEPARIN 25,000 UNITS/500ML PMX 500 ML ONE (19:04)
[2017-12-14 20:36] VITALS: BP 168/88
[2017-12-14] MEDS ORDERED: SODIUM CHLORIDE 0.9% 1,000 ML IV SCH (21:39)
[2017-12-14] MEDS ORDERED: DOCUSATE 100 MG CAPSULE PO PRN (22:00)
[2017-12-14] MEDS ORDERED: POLYETHYLENE GLYCOL 17 GM PACKET PO PRN (22:00)
[2017-12-14] MEDS ORDERED: NITROGLYCERIN 0.4 MG BOTTLE (25 TABS) SL PRN (22:00)
[2017-12-14] MEDS ORDERED: morphine SULFATE 10 MG/ML, 1ML IVPush PRN (22:00)
[2017-12-14] MEDS ORDERED: BISACODYL 10 MG SUPP PR PRN (22:00)
[2017-12-14] MEDS ORDERED: ENALAPRILAT 1.25 MG/ML, 2ML IVPush PRN (22:00)
[2017-12-14] MEDS ORDERED: OXYcodone IR 5MG TABLET PO PRN (22:00)
[2017-12-14] MEDS ORDERED: ACETAMINOPHEN 325 MG TABLET PO PRN (22:00)
[2017-12-14] MEDS ORDERED: ONDANSETRON 2MG/ML, 2ML IVPush PRN (22:00)
[2017-12-14] MEDS ORDERED: hydrALAzine 20 MG/ML, 1ML IVPush PRN (22:00)
[2017-12-14] MEDS ORDERED: LABETALOL 5MG/ML, 20ML IVPush PRN (22:00)
[2017-12-14 22:19] LABS: FREE T4 (FREE THYROXINE) 0.81 ng/dL (0.76-1.46); HEMOGLOBIN A1C 6.1 % (4.2-6.3); THYROID STIMULATING HORMONE 5.49 mIU/L (0.358-3.740)
[2017-12-14] MEDS: LOSARTAN 50MG TABLET PO SCH (23:39)
[2017-12-14] MEDS: CARVEDILOL 12.5 MG TABLET PO SCH (23:39)
[2017-12-15 00:58] VITALS: BP 152/85
[2017-12-15 01:46] LABS: BASOPHILS # (AUTO) 0.03 x10^3/uL (0-0.1); BASOPHILS % (AUTO) 0 % (0-1); EOSINOPHILS # (AUTO) 0.09 x10^3/uL (0-0.4); EOSINOPHILS % (AUTO) 1 % (1-7); LYMPHOCYTES # (AUTO) 1.74 x10^3/uL (1-3.4); LYMPHOCYTES % (AUTO) 28 % (22-44); MD NO; MEAN CORPUSCULAR HEMOGLOBIN 32.4 pg (27.5-34.5); MEAN CORPUSCULAR HGB CONC 33.7 g/dL (33.2-36.2); MEAN PLATELET VOLUME 7.5 fL (7.4-10.4); MONOCYTES # (AUTO) 0.95 x10^3/uL (0.2-0.8); MONOCYTES % (AUTO) 15 % (2-9); NEUTROPHILS # (AUTO) 3.45 x10^3/uL (1.8-6.8); NEUTROPHILS % (AUTO) 55 % (42-75); PLATELET COUNT 265 x10^3/uL (130-400); RED BLOOD COUNT 4.24 x10^6/uL (4.38-5.82)
[2017-12-15 02:03] LABS: ANION GAP 7 mmol/L (5-15); CALCIUM 8.4 mg/dL (8.5-10.1); CHLORIDE 107 mmol/L (98-107); CHOLESTEROL, TOTAL 236 mg/dL (140-239)
[2017-12-15 02:06] LABS: ALANINE AMINOTRANSFERASE 33 U/L (12-78); ALKALINE PHOSPHATASE 79 U/L (45-117); BILIRUBIN,TOTAL 0.6 mg/dL (0.2-1.0); CHOL/HDL RATIO 7.9; CREATININE 1.36 mg/dL (0.7-1.3); HDL CHOL % 13 % (26-37); HDL CHOLESTEROL (DIRECT) 30 mg/dL (40-60); LDL CHOLESTEROL,CALCULATED 174 mg/dL (54-169); LDL/HDL RATIO 5.8 (0.5-3.0); TOTAL PROTEIN 6.4 g/dL (6.4-8.2); TRIGLYCERIDES 160 mg/dL (50-200); VLDL CHOLESTEROL 32 mg/dL (0-25)
[2017-12-15] MEDS ORDERED: ASPIRIN 325 MG TABLET EC PO SCH (06:00)
[2017-12-15 07:48] VITALS: BP 152/92
[2017-12-15] MEDS: ASCORBIC ACID 500 MG TABLET PO SCH (08:21)
[2017-12-15] MEDS: CHOLECALCIFEROL 1,000 UNIT TABLET PO SCH ×2 (08:21→20:31)
[2017-12-15] MEDS: CARVEDILOL 12.5 MG TABLET PO SCH ×3 (08:21→20:30)
[2017-12-15] MEDS: MAGNESIUM OXIDE 400 MG TABLET PO SCH ×2 (08:21→20:30)
[2017-12-15] MEDS: LOSARTAN 50MG TABLET PO SCH ×2 (08:21→20:29)
[2017-12-15] MEDS: NIACIN 500 MG TABLET.ER PO SCH ×2 (08:22→08:27)
[2017-12-15] MEDS ORDERED: POTASSIUM CHLORIDE 20 MEQ TAB.ER.PRT PO ONE (08:30)
[2017-12-15] MEDS ORDERED: SODIUM CHLORIDE 0.9% 1,000 ML IV ONE (08:36)
[2017-12-15] MEDS ORDERED: CLOPIDOGREL 75 MG TABLET PO SCH (09:00)
[2017-12-15] MEDS: NITROGLYCERIN OINT 2%, 1GM TP SCH ×3 (10:04→20:28)
[2017-12-15 10:38] LABS: MICROSCOPIC NOT IND
[2017-12-15 10:42] LABS: CULTURE INDICATED? NO
[2017-12-15] MEDS ORDERED: FENTANYL PF 100 MCG/2ML ONE (11:43)
[2017-12-15] MEDS ORDERED: MIDAZOLAM 1 MG/ML, 5ML ONE (11:43)
[2017-12-15] MEDS ORDERED: VERAPAMIL 2.5 MG/ML, 2ML ONE (11:44)
[2017-12-15] MEDS ORDERED: HEPARIN 1,000 UNITS/ML, 10ML ONE (11:44)
[2017-12-15] MEDS ORDERED: BIVALIRUDIN 250 MG ONE ×2 (11:44→13:24)
[2017-12-15] MEDS ORDERED: TICAGRELOR 90 MG TABLET ONE (11:44)
[2017-12-15] MEDS ORDERED: NITROGLYCERIN 5 MG/ML, 10ML ONE (11:44)
[2017-12-15] MEDS ORDERED: LABETALOL 5MG/ML, 20ML ONE (13:08)
[2017-12-15] MEDS: SODIUM CHLORIDE 0.9% 1,000 ML IV SCH ×2 (14:10→20:16)
[2017-12-15 14:18] VITALS: BP 162/101
[2017-12-15 20:21] VITALS: BP 137/78
[2017-12-15] MEDS: PRAVASTATIN 20 MG TABLET PO SCH ×2 (20:29→20:39)
[2017-12-15] MEDS: TICAGRELOR 90 MG TABLET PO SCH (20:32)
[2017-12-15] MEDS ORDERED: SODIUM CHLORIDE 0.9% 1,000 ML IV SCH (21:39)
[2017-12-16 02:50] VITALS: BP 124/68
[2017-12-16] MEDS: SODIUM CHLORIDE 0.9% 1,000 ML IV SCH (03:15)
[2017-12-16] MEDS: NITROGLYCERIN OINT 2%, 1GM TP SCH ×2 (03:19→08:30)
[2017-12-16 05:15] LABS: ALBUMIN 2.9 g/dL (3.4-5.0); ANION GAP 8 mmol/L (5-15); CALCIUM 8.8 mg/dL (8.5-10.1); CHLORIDE 111 mmol/L (98-107)
[2017-12-16 05:16] LABS: CREATININE 1.26 mg/dL (0.7-1.3)
[2017-12-16] MEDS: CHOLECALCIFEROL 1,000 UNIT TABLET PO SCH (07:57)
[2017-12-16] MEDS: ASCORBIC ACID 500 MG TABLET PO SCH (07:57)
[2017-12-16 08:00] VITALS: BP 136/86
[2017-12-16] MEDS: LOSARTAN 50MG TABLET PO SCH (08:00)
[2017-12-16] MEDS: CARVEDILOL 12.5 MG TABLET PO SCH (08:00)
[2017-12-16] MEDS: MAGNESIUM OXIDE 400 MG TABLET PO SCH (08:00)
[2017-12-16] MEDS: NIACIN 500 MG TABLET.ER PO SCH (08:01)
[2017-12-16] MEDS: TICAGRELOR 90 MG TABLET PO SCH (08:07)
[2017-12-16] MEDS ORDERED: ASPIRIN 81 MG TABLET EC PO SCH (09:00)
[2017-12-16] MEDS ORDERED: PRAV20TA PO (11:16)
[2017-12-16] MEDS ORDERED: ASPI-621 PO (11:16)
[2017-12-16] MEDS ORDERED: CARV12.52 PO (11:16)
[2017-12-16] MEDS ORDERED: TICA90TA PO (11:16)
[2017-12-16 13:52] VITALS: BP 125/71
[2018-01-12] MEDS ORDERED: SPIR25TA PO (09:04)
[2018-01-12] MEDS ORDERED: CLON0.1T12 PO (09:04)
[2018-01-12] MEDS ORDERED: CARV25TA12 PO (09:04)
[2018-01-12] MEDS ORDERED: ISOS30TA8 PO (09:04)
[2018-01-12] MEDS ORDERED: ASPI-621 PO (15:43)
== END 2017-12-16 19:20 | disposition home or self-care (01) | DRG 246 ==
LOC: ED 18:51 → EDIP 19:32 → 5SO 20:10
PROVIDERS: ADMIT Hospitalist; ATTEND Hospitalist
PROC: 027136Z Dilation of Coronary Artery, Two Arteries with Three Drug-eluting Intraluminal Devices, Percutaneous Approach (ICD-10-PCS; principal; 2017-12-15)
PROC: 02703ZZ Dilation of Coronary Artery, One Artery, Percutaneous Approach (ICD-10-PCS; 2017-12-15)
PROC: B2111ZZ Fluoroscopy of Multiple Coronary Arteries using Low Osmolar Contrast (ICD-10-PCS; 2017-12-15)
PROC: 4A023N7 Measurement of Cardiac Sampling and Pressure, Left Heart, Percutaneous Approach (ICD-10-PCS; 2017-12-15)
PROC: 02C03ZZ Extirpation of Matter from Coronary Artery, One Artery, Percutaneous Approach (ICD-10-PCS; 2017-12-15)
DX: I21.4 Non-ST elevation (NSTEMI) myocardial infarction (principal); N17.0 Acute kidney failure with tubular necrosis; I47.2 Ventricular tachycardia; E44.0 Moderate protein-calorie malnutrition; I50.42 Chronic combined systolic (congestive) and diastolic (congestive) heart failure; I16.9 Hypertensive crisis, unspecified; I11.0 Hypertensive heart disease with heart failure; I25.110 Atherosclerotic heart disease of native coronary artery with unstable angina pectoris; L40.9 Psoriasis, unspecified; M10.9 Gout, unspecified; E78.5 Hyperlipidemia, unspecified; I25.5 Ischemic cardiomyopathy; I70.202 Unspecified atherosclerosis of native arteries of extremities, left leg; I71.4 Abdominal aortic aneurysm, without rupture; Z77.098 Contact with and (suspected) exposure to other hazardous, chiefly nonmedicinal, chemicals; R59.0 Localized enlarged lymph nodes; M79.1 Myalgia; R73.01 Impaired fasting glucose; Z79.82 Long term (current) use of aspirin; Z68.29 Body mass index [BMI] 29.0-29.9, adult; Z79.899 Other long term (current) drug therapy; Z80.9 Family history of malignant neoplasm, unspecified; Z82.49 Family history of ischemic heart disease and other diseases of the circulatory system; Z86.73 Personal history of transient ischemic attack (TIA), and cerebral infarction without residual deficits; Z87.891 Personal history of nicotine dependence; Z91.19 Patient's noncompliance with other medical treatment and regimen; Z95.5 Presence of coronary angioplasty implant and graft; Z91.14 Patient's other noncompliance with medication regimen
CPT/HCPCS: 36415; 71045; 80048; 80053; 80061; 81003; 82040; 83036; 83735; 84439; 84443; 84484; 85025; 85520; 92920; 93005; 93306; 93454; 93978; 96365; 96375; 99156; 99157; C1769; C1894; C9600; C9601; J0583; J1644; J2250; J3010; 92928; C1725; C1757; C1874; C1887; J7030; Q9967

== ENCOUNTER 2017-12-29 05:48 | Inpatient (IN) | payer MEDICARE ==
[~2017-12-29] VITALS: Ht 190.5 cm; Wt 97.7 kg
[~2017-12-29 05:48] MED LIST changes: +ASPI-621 PO; +PRAV20TA PO; +TICA90TA PO
[2017-12-29] MEDS ORDERED: SODIUM CHLORIDE 0.9% 1,000 ML IV SCH (06:14)
[2017-12-29] MEDS ORDERED: ASPIRIN 325 MG TABLET PO STA (06:14)
[2017-12-29] MEDS ORDERED: ASPIRIN 81 MG TABLET CHEW ONE ×2 (06:17)
[2017-12-29] MEDS ORDERED: NITROGLYCERIN SINGLE TAB 0.4 MG SL ONE (06:17)
[2017-12-29 06:28] LABS: BASOPHILS # (AUTO) 0.03 x10^3/uL (0-0.1); BASOPHILS % (AUTO) 0 % (0-1); EOSINOPHILS # (AUTO) 0.16 x10^3/uL (0-0.4); EOSINOPHILS % (AUTO) 2 % (1-7); LYMPHOCYTES % (AUTO) 18 % (22-44); MD NO; MEAN CORPUSCULAR HEMOGLOBIN 32.6 pg (27.5-34.5); MEAN CORPUSCULAR HGB CONC 33.3 g/dL (33.2-36.2); MEAN PLATELET VOLUME 7.3 fL (7.4-10.4); MONOCYTES # (AUTO) 0.51 x10^3/uL (0.2-0.8); MONOCYTES % (AUTO) 6 % (2-9); NEUTROPHILS # (AUTO) 6.38 x10^3/uL (1.8-6.8); NEUTROPHILS % (AUTO) 74 % (42-75); PLATELET COUNT 406 x10^3/uL (130-400); RED BLOOD COUNT 4.99 x10^6/uL (4.38-5.82); RED CELL DISTRIBUTION WIDTH 13.2 % (9.4-14.8)
[2017-12-29] MEDS ORDERED: NITROGLYCERIN 0.4 MG BOTTLE (25 TABS) SL PRN (06:30)
[2017-12-29] MEDS ORDERED: ATORVASTATIN 80 MG TABLET PO ONE (06:30)
[2017-12-29 06:38] LABS: INTERNATIONAL NORMALIZED RATIO 0.96 (0.93-1.1)
[2017-12-29] MEDS ORDERED: CLOP75TA52 PO (06:41)
[2017-12-29] MEDS ORDERED: CLON0.2T PO (06:41)
[2017-12-29] MEDS ORDERED: NITROGLYCERIN 5 MG/ML, 10ML ONE (06:50)
[2017-12-29] MEDS ORDERED: FENTANYL PF 100 MCG/2ML ONE (06:50)
[2017-12-29] MEDS ORDERED: VERAPAMIL 2.5 MG/ML, 2ML ONE (06:50)
[2017-12-29] MEDS ORDERED: BIVALIRUDIN 250 MG ONE ×2 (06:50→07:32)
[2017-12-29] MEDS ORDERED: HEPARIN 1,000 UNITS/ML, 10ML ONE (06:50)
[2017-12-29] MEDS ORDERED: TICAGRELOR 90 MG TABLET ONE (06:50)
[2017-12-29] MEDS ORDERED: MIDAZOLAM 1 MG/ML, 5ML ONE (06:50)
[2017-12-29] MEDS ORDERED: LIDOCAINE 2%, 2ML ONE (06:51)
[2017-12-29] MEDS ORDERED: EPTIFIBATIDE 100 ML IV ONE (07:33)
[2017-12-29] MEDS ORDERED: EPTIFIBATIDE 20 MG/10 ML ONE (07:33)
[2017-12-29] MEDS ORDERED: hydrALAzine 20 MG/ML, 1ML ONE (08:07)
[2017-12-29] MEDS: hydrALAzine 20 MG/ML, 1ML IV PRN (08:17)
[2017-12-29] MEDS ORDERED: ACETAMINOPHEN 325 MG TABLET PO PRN (08:30)
[2017-12-29] MEDS ORDERED: BISACODYL 10 MG SUPP PR PRN (08:30)
[2017-12-29] MEDS ORDERED: ONDANSETRON 2MG/ML, 2ML IV PRN (08:30)
[2017-12-29] MEDS ORDERED: BISACODYL 5 MG EC TABLET PO PRN (08:30)
[2017-12-29] MEDS ORDERED: ZOLPIDEM 5MG TABLET PO PRN (08:30)
[2017-12-29] MEDS ORDERED: EPTIFIBATIDE 100 ML IV SCH (08:30)
[2017-12-29 09:35] LABS: CREATINE KINASE, TOTAL 457 U/L (39-308)
[2017-12-29] MEDS: TICAGRELOR 90 MG TABLET PO SCH ×2 (09:48→20:43)
[2017-12-29 09:59] VITALS: BP 140/87
[2017-12-29] MEDS ORDERED: METOPROLOL TARTRATE 25 MG TABLET PO SCH (10:00)
[2017-12-29] MEDS ORDERED: LISINOPRIL 5 MG TABLET PO SCH (10:00)
[2017-12-29] MEDS: morphine SULFATE 10 MG/ML, 1ML IVPush PRN (10:15)
[2017-12-29] MEDS ORDERED: LISINOPRIL 5 MG TABLET ONE (10:16)
[2017-12-29] MEDS ORDERED: METOPROLOL TARTRATE 25 MG TABLET ONE (10:16)
[2017-12-29] MEDS ORDERED: LOSARTAN 25MG TABLET ONE (10:18)
[2017-12-29] MEDS ORDERED: CARVEDILOL 12.5 MG TABLET ONE (10:18)
[2017-12-29] MEDS ORDERED: LOSARTAN 50MG TABLET ONE (10:19)
[2017-12-29] MEDS: LOSARTAN 50MG TABLET PO SCH (10:21)
[2017-12-29] MEDS: CARVEDILOL 12.5 MG TABLET PO SCH ×2 (10:21→17:59)
[2017-12-29] MEDS: SODIUM CHLORIDE 0.9% 1,000 ML IV SCH ×2 (10:33→20:44)
[2017-12-29 14:46] LABS: CREATINE KINASE, TOTAL 836 U/L (39-308)
[2017-12-29] MEDS: ATORVASTATIN 80 MG TABLET PO SCH (20:44)
[2017-12-30] MEDS: hydrALAzine 20 MG/ML, 1ML IV PRN (03:48)
[2017-12-30 04:00] VITALS: BP 163/86
[2017-12-30 04:47] LABS: ALBUMIN 3.1 g/dL (3.4-5.0); ANION GAP 10 mmol/L (5-15); CALCIUM 8.8 mg/dL (8.5-10.1); CHLORIDE 110 mmol/L (98-107); CHOLESTEROL, TOTAL 210 mg/dL (140-239); CREATININE 1.32 mg/dL (0.7-1.3); TRIGLYCERIDES 128 mg/dL (50-200); VLDL CHOLESTEROL 26 mg/dL (0-25)
[2017-12-30 04:49] LABS: CHOL/HDL RATIO 5.8; HDL CHOL % 17 % (26-37); HDL CHOLESTEROL (DIRECT) 36 mg/dL (40-60); LDL CHOLESTEROL,CALCULATED 148 mg/dL (54-169); LDL/HDL RATIO 4.1 (0.5-3.0)
[2017-12-30] MEDS: ASPIRIN 81 MG TABLET EC PO SCH (06:11)
[2017-12-30] MEDS: CARVEDILOL 12.5 MG TABLET PO SCH ×2 (06:18→17:27)
[2017-12-30] MEDS: SODIUM CHLORIDE 0.9% 1,000 ML IV SCH (07:00)
[2017-12-30] MEDS: TICAGRELOR 90 MG TABLET PO SCH ×2 (07:48→20:53)
[2017-12-30] MEDS: LOSARTAN 50MG TABLET PO SCH (07:48)
[2017-12-30] MEDS: FUROSEMIDE 20 MG TABLET PO SCH (13:54)
[2017-12-30] MEDS: POTASSIUM CHLORIDE 10 MEQ TABLET.ER PO SCH (13:54)
[2017-12-30] MEDS: CHOLECALCIFEROL 1,000 UNIT TABLET PO SCH (20:53)
[2017-12-30] MEDS: ATORVASTATIN 80 MG TABLET PO SCH (20:54)
[2017-12-31 04:23] VITALS: BP 163/97
[2017-12-31] MEDS: CARVEDILOL 12.5 MG TABLET PO SCH (06:31)
[2017-12-31] MEDS: ASPIRIN 81 MG TABLET EC PO SCH (06:31)
[2017-12-31] MEDS: TICAGRELOR 90 MG TABLET PO SCH ×2 (10:22→20:12)
[2017-12-31] MEDS: POTASSIUM CHLORIDE 10 MEQ TABLET.ER PO SCH (10:22)
[2017-12-31] MEDS: LOSARTAN 50MG TABLET PO SCH (10:23)
[2017-12-31] MEDS: CHOLECALCIFEROL 1,000 UNIT TABLET PO SCH ×2 (10:23→20:13)
[2017-12-31] MEDS: FUROSEMIDE 20 MG TABLET PO SCH (10:23)
[2017-12-31 14:51] VITALS: BP 150/86
[2017-12-31 18:05] VITALS: BP 135/77
[2017-12-31] MEDS: CARVEDILOL 25 MG TABLET PO SCH (18:06)
[2017-12-31] MEDS: ATORVASTATIN 80 MG TABLET PO SCH (20:13)
[2017-12-31 20:14] VITALS: BP 145/88
[2017-12-31] MEDS: morphine SULFATE 10 MG/ML, 1ML IVPush PRN (20:14)
[2018-01-01 02:32] VITALS: BP 112/72
[2018-01-01] MEDS: ASPIRIN 81 MG TABLET EC PO SCH (05:29)
[2018-01-01] MEDS: CARVEDILOL 25 MG TABLET PO SCH (05:29)
[2018-01-01 05:51] LABS: ANION GAP 7 mmol/L (5-15); CALCIUM 8.7 mg/dL (8.5-10.1); CHLORIDE 109 mmol/L (98-107); CREATININE 1.22 mg/dL (0.7-1.3)
[2018-01-01 06:08] LABS: BASOPHILS # (AUTO) 0.04 x10^3/uL (0-0.1); BASOPHILS % (AUTO) 1 % (0-1); EOSINOPHILS # (AUTO) 0.27 x10^3/uL (0-0.4); EOSINOPHILS % (AUTO) 4 % (1-7); LYMPHOCYTES % (AUTO) 23 % (22-44); MD NO; MEAN CORPUSCULAR HEMOGLOBIN 32.3 pg (27.5-34.5); MEAN CORPUSCULAR HGB CONC 33.5 g/dL (33.2-36.2); MEAN CORPUSCULAR VOLUME 96.4 fL (81-97); MEAN PLATELET VOLUME 7.4 fL (7.4-10.4); MONOCYTES # (AUTO) 0.75 x10^3/uL (0.2-0.8); MONOCYTES % (AUTO) 11 % (2-9); NEUTROPHILS # (AUTO) 4.46 x10^3/uL (1.8-6.8); NEUTROPHILS % (AUTO) 63 % (42-75); PLATELET COUNT 322 x10^3/uL (130-400); RED CELL DISTRIBUTION WIDTH 13.8 % (9.4-14.8)
[2018-01-01 08:17] VITALS: BP 119/77
[2018-01-01] MEDS: POTASSIUM CHLORIDE 10 MEQ TABLET.ER PO SCH (08:20)
[2018-01-01] MEDS: LOSARTAN 50MG TABLET PO SCH (08:21)
[2018-01-01] MEDS: CHOLECALCIFEROL 1,000 UNIT TABLET PO SCH (08:21)
[2018-01-01] MEDS: TICAGRELOR 90 MG TABLET PO SCH (08:21)
[2018-01-01] MEDS: FUROSEMIDE 20 MG TABLET PO SCH (08:21)
== END 2018-01-01 14:43 | disposition home or self-care (01) | DRG 246 ==
LOC: ED 06:15 → EDIP 06:30 → CCU 07:51 → 5SO 12-31 14:29
PROVIDERS: ADMIT Internal Medicine Interventional Cardiology; ATTEND Internal Medicine Interventional Cardiology
PROC: 4A023N7 Measurement of Cardiac Sampling and Pressure, Left Heart, Percutaneous Approach (ICD-10-PCS; principal; 2017-12-29)
PROC: 027034Z Dilation of Coronary Artery, One Artery with Drug-eluting Intraluminal Device, Percutaneous Approach (ICD-10-PCS; 2017-12-29)
PROC: 02703ZZ Dilation of Coronary Artery, One Artery, Percutaneous Approach (ICD-10-PCS; 2017-12-29)
PROC: B2111ZZ Fluoroscopy of Multiple Coronary Arteries using Low Osmolar Contrast (ICD-10-PCS; 2017-12-29)
DX: T82.867A Thrombosis due to cardiac prosthetic devices, implants and grafts, initial encounter (principal); I21.19 ST elevation (STEMI) myocardial infarction involving other coronary artery of inferior wall; I50.31 Acute diastolic (congestive) heart failure; I42.9 Cardiomyopathy, unspecified; Y92.89 Other specified places as the place of occurrence of the external cause; Y83.1 Surgical operation with implant of artificial internal device as the cause of abnormal reaction of the patient, or of later complication, without mention of misadventure at the time of the procedure; E78.5 Hyperlipidemia, unspecified; I11.0 Hypertensive heart disease with heart failure; I25.10 Atherosclerotic heart disease of native coronary artery without angina pectoris; I25.2 Old myocardial infarction; I73.9 Peripheral vascular disease, unspecified; Z79.82 Long term (current) use of aspirin; Z79.899 Other long term (current) drug therapy; Z86.73 Personal history of transient ischemic attack (TIA), and cerebral infarction without residual deficits; Z87.891 Personal history of nicotine dependence
CPT/HCPCS: 36415; 71045; 80047; 80048; 80061; 82040; 82550; 82553; 84484; 85014; 85018; 85025; 85610; 85730; 87081; 93005; 93306; 93458; 96374; 99156; 99157; C1769; C1894; J0583; J1644; J2250; J3010; J3490; C1725; C1874; C1887; J0360; J1327; J2270; J7030; Q9967

== ENCOUNTER 2018-01-18 13:27 | Emergency (ER) | payer MEDICARE ==
[~2018-01-18] VITALS: Ht 177.8 cm; Wt 75.0 kg
[~2018-01-18 13:27] MED LIST changes: +CARV25TA12 PO; +CLON0.1T12 PO; +CLON0.2T PO; +ISOS30TA8 PO; +SPIR25TA PO
[2018-01-18 13:50] LABS: BASOPHILS # (AUTO) 0.05 x10^3/uL (0-0.1); BASOPHILS % (AUTO) 1 % (0-1); EOSINOPHILS % (AUTO) 1 % (1-7); LYMPHOCYTES # (AUTO) 1.19 x10^3/uL (1-3.4); LYMPHOCYTES % (AUTO) 16 % (22-44); MD NO; MEAN CORPUSCULAR HEMOGLOBIN 31.7 pg (27.5-34.5); MEAN CORPUSCULAR HGB CONC 32.8 g/dL (33.2-36.2); MEAN CORPUSCULAR VOLUME 96.8 fL (81-97); MEAN PLATELET VOLUME 7.6 fL (7.4-10.4); MONOCYTES # (AUTO) 0.68 x10^3/uL (0.2-0.8); MONOCYTES % (AUTO) 9 % (2-9); NEUTROPHILS # (AUTO) 5.65 x10^3/uL (1.8-6.8); NEUTROPHILS % (AUTO) 74 % (42-75); PLATELET COUNT 315 x10^3/uL (130-400); RED BLOOD COUNT 3.88 x10^6/uL (4.38-5.82); RED CELL DISTRIBUTION WIDTH 14.5 % (9.4-14.8)
[2018-01-18] MEDS ORDERED: SODIUM CHLORIDE FLUSH 10ML SYR IVF ONE (14:00)
[2018-01-18 14:03] LABS: ALBUMIN 3.4 g/dL (3.4-5.0); ANION GAP 7 mmol/L (5-15); CALCIUM 9.1 mg/dL (8.5-10.1); CHLORIDE 108 mmol/L (98-107); CREATININE 1.61 mg/dL (0.7-1.3)
[2018-01-18 14:20] LABS: MICROSCOPIC NOT IND
[2018-01-18 14:27] LABS: CULTURE INDICATED? NO
[2018-01-18 14:28] LABS: AMPHETAMINE SCREEN, URINE Negative (Negative); BARBITURATE SCREEN, URINE Negative (Negative); BENZODIAZEPINE SCREEN, URINE Negative (Negative); CANNABINOID SCREEN, URINE Negative (Negative); COCAINE SCREEN, URINE Negative (Negative); METHADONE SCREEN, URINE Negative (Negative); OPIATE SCREEN, URINE Negative (Negative)
[2018-01-18] MEDS ORDERED: DIPH,PERTUSS(ACELL),TET VAC/PF 0.5 ML IM-VACC ONE ×2 (15:30→15:38)
[2018-01-18] MEDS ORDERED: PLEASE ENTER HEIGHT AND WEIGHT MC SCH (15:30)
[2018-01-18 15:48] VITALS: BP 122/64
== END 2018-01-18 15:54 | disposition home or self-care (01) ==
LOC: ED 15:48
DX: S51.012A Laceration without foreign body of left elbow, initial encounter (principal); I73.9 Peripheral vascular disease, unspecified; I25.10 Atherosclerotic heart disease of native coronary artery without angina pectoris; I11.0 Hypertensive heart disease with heart failure; I50.9 Heart failure, unspecified; I25.2 Old myocardial infarction; I71.4 Abdominal aortic aneurysm, without rupture; Z86.73 Personal history of transient ischemic attack (TIA), and cerebral infarction without residual deficits; W19.XXXA Unspecified fall, initial encounter; Y93.01 Activity, walking, marching and hiking; Y92.89 Other specified places as the place of occurrence of the external cause; Y99.8 Other external cause status
CPT/HCPCS: 36415; 70450; 80048; 80307; 81003; 82040; 84484; 85025; 90471; 90715; 93005; 99285

== ENCOUNTER → 2018-02-25 | Outpatient (CLI) | payer MEDICARE ==
[2018-02-25 15:36] LABS: BASOPHILS # (AUTO) 0.03 x10^3/uL (0-0.1); BASOPHILS % (AUTO) 1 % (0-1); EOSINOPHILS # (AUTO) 0.07 x10^3/uL (0-0.4); EOSINOPHILS % (AUTO) 1 % (1-7); LYMPHOCYTES # (AUTO) 1.34 x10^3/uL (1-3.4); LYMPHOCYTES % (AUTO) 25 % (22-44); MD NO; MEAN CORPUSCULAR HEMOGLOBIN 33.1 pg (27.5-34.5); MEAN CORPUSCULAR VOLUME 97.2 fL (81-97); MEAN PLATELET VOLUME 7.4 fL (7.4-10.4); MONOCYTES # (AUTO) 0.57 x10^3/uL (0.2-0.8); MONOCYTES % (AUTO) 11 % (2-9); NEUTROPHILS # (AUTO) 3.32 x10^3/uL (1.8-6.8); NEUTROPHILS % (AUTO) 62 % (42-75); PLATELET COUNT 300 x10^3/uL (130-400); RED CELL DISTRIBUTION WIDTH 14.1 % (9.4-14.8)
[2018-02-25 15:45] LABS: ALANINE AMINOTRANSFERASE 26 U/L (12-78); ALBUMIN 3.5 g/dL (3.4-5.0); ANION GAP 6 mmol/L (5-15); CHLORIDE 109 mmol/L (98-107); CHOLESTEROL, TOTAL 169 mg/dL (140-239); CREATININE 1.33 mg/dL (0.7-1.3)
[2018-02-25 15:47] LABS: ALKALINE PHOSPHATASE 83 U/L (45-117); BILIRUBIN,TOTAL 0.4 mg/dL (0.2-1.0); CHOL/HDL RATIO 5.1; HDL CHOL % 20 % (26-37); HDL CHOLESTEROL (DIRECT) 33 mg/dL (40-60); LDL CHOLESTEROL,CALCULATED 119 mg/dL (54-169); LDL/HDL RATIO 3.6 (0.5-3.0); TOTAL PROTEIN 7.1 g/dL (6.4-8.2); TRIGLYCERIDES 85 mg/dL (50-200); VLDL CHOLESTEROL 17 mg/dL (0-25)
[2018-02-25 16:11] LABS: HEMOGLOBIN A1C 6.2 % (4.2-6.3)
== END | disposition home or self-care (01) ==
LOC: CFH 12:23
PROVIDERS: ATTEND Internal Medicine Cardiovascular Disease
DX: I10 Essential (primary) hypertension (principal); I25.10 Atherosclerotic heart disease of native coronary artery without angina pectoris; Z79.899 Other long term (current) drug therapy
CPT/HCPCS: 36415; 80053; 80061; 83036; 85025

== ENCOUNTER → 2018-06-23 | Outpatient (CLI) | payer MEDICARE, OTHER ==
[2018-06-23 15:48] LABS: BASOPHILS # (AUTO) 0.03 x10^3/uL (0-0.1); BASOPHILS % (AUTO) 0 % (0-1); EOSINOPHILS # (AUTO) 0.07 x10^3/uL (0-0.4); EOSINOPHILS % (AUTO) 1 % (1-7); LYMPHOCYTES # (AUTO) 1.31 x10^3/uL (1-3.4); LYMPHOCYTES % (AUTO) 20 % (22-44); MD NO; MEAN CORPUSCULAR HEMOGLOBIN 32.4 pg (27.5-34.5); MEAN CORPUSCULAR HGB CONC 33.4 g/dL (33.2-36.2); MEAN CORPUSCULAR VOLUME 96.9 fL (81-97); MEAN PLATELET VOLUME 7.5 fL (7.4-10.4); MONOCYTES # (AUTO) 0.66 x10^3/uL (0.2-0.8); MONOCYTES % (AUTO) 10 % (2-9); NEUTROPHILS # (AUTO) 4.51 x10^3/uL (1.8-6.8); NEUTROPHILS % (AUTO) 69 % (42-75); PLATELET COUNT 334 x10^3/uL (130-400); RED BLOOD COUNT 4.78 x10^6/uL (4.38-5.82); RED CELL DISTRIBUTION WIDTH 12.9 % (9.4-14.8)
[2018-06-23 15:56] LABS: ALBUMIN 3.4 g/dL (3.4-5.0); ANION GAP 9 mmol/L (5-15); CALCIUM 8.9 mg/dL (8.5-10.1); CHLORIDE 109 mmol/L (98-107)
[2018-06-23 16:01] LABS: HCT (SEDRATE) 46.5 % (39.2-51.8)
[2018-06-23 16:05] LABS: ALANINE AMINOTRANSFERASE 25 U/L (12-78); ALKALINE PHOSPHATASE 89 U/L (45-117); BILIRUBIN,TOTAL 0.8 mg/dL (0.2-1.0); CREATININE 1.14 mg/dL (0.7-1.3); TOTAL PROTEIN 7.4 g/dL (6.4-8.2)
== END | disposition home or self-care (01) ==
LOC: CFH 14:45
PROVIDERS: ATTEND Family Medicine
DX: M10.9 Gout, unspecified (principal); L40.50 Arthropathic psoriasis, unspecified; Z79.899 Other long term (current) drug therapy
CPT/HCPCS: 36415; 80053; 84550; 85025; 85651; 86140; 86480; 86803; 87340

== ENCOUNTER → 2018-09-13 | Outpatient (CLI) | payer MEDICARE, OTHER ==
[~2018-09-13] MED LIST changes: -ASPI-621 PO; +ASPI81TA45 PO; +LORA-247 PO; -LORA10TA3 PO
[2018-09-13 12:30] LABS: BASOPHILS # (AUTO) 0.02 x10^3/uL (0-0.1); BASOPHILS % (AUTO) 1 % (0-1); EOSINOPHILS # (AUTO) 0.12 x10^3/uL (0-0.4); EOSINOPHILS % (AUTO) 3 % (1-7); LYMPHOCYTES # (AUTO) 1.38 x10^3/uL (1-3.4); LYMPHOCYTES % (AUTO) 31 % (22-44); MD NO; MEAN CORPUSCULAR HEMOGLOBIN 33.5 pg (27.5-34.5); MEAN CORPUSCULAR HGB CONC 33.1 g/dL (33.2-36.2); MEAN CORPUSCULAR VOLUME 101.2 fL (81-97); MONOCYTES % (AUTO) 11 % (2-9); NEUTROPHILS # (AUTO) 2.48 x10^3/uL (1.8-6.8); NEUTROPHILS % (AUTO) 55 % (42-75); PLATELET COUNT 218 x10^3/uL (130-400); RED CELL DISTRIBUTION WIDTH 17.2 % (9.4-14.8)
[2018-09-13 12:52] LABS: ALANINE AMINOTRANSFERASE 38 U/L (12-78); ALBUMIN 3.7 g/dL (3.4-5.0); ANION GAP 9 mmol/L (5-15); CALCIUM 9.5 mg/dL (8.5-10.1); CHLORIDE 105 mmol/L (98-107); CHOLESTEROL, TOTAL 164 mg/dL (140-239); CREATININE 1.45 mg/dL (0.7-1.3)
[2018-09-13 12:54] LABS: ALKALINE PHOSPHATASE 88 U/L (45-117); BILIRUBIN,TOTAL 1.2 mg/dL (0.2-1.0); CHOL/HDL RATIO 4.6; HDL CHOL % 22 % (26-37); HDL CHOLESTEROL (DIRECT) 36 mg/dL (40-60); LDL CHOLESTEROL,CALCULATED 101 mg/dL (54-169); LDL/HDL RATIO 2.8 (0.5-3.0); TOTAL PROTEIN 7.1 g/dL (6.4-8.2); TRIGLYCERIDES 135 mg/dL (50-200); VLDL CHOLESTEROL 27 mg/dL (0-25)
== END | disposition home or self-care (01) ==
LOC: CFH 10:33
PROVIDERS: ATTEND Internal Medicine Cardiovascular Disease
DX: E78.2 Mixed hyperlipidemia (principal); I10 Essential (primary) hypertension
CPT/HCPCS: 36415; 80053; 80061; 85025

== ENCOUNTER 2018-09-26 22:07 | Inpatient (IN) | payer MEDICARE ==
[~2018-09-26] VITALS: Ht 188 cm; Wt 96.0 kg
--- NOTE | 2018-09-26 22:30 | NUR ---
Pt given urinal as he states "I was on a lasix drip for several hours at the last hospital and I think I'll need to go."
[2018-09-26 23:16] LABS: MEAN CORPUSCULAR HEMOGLOBIN 33.1 pg (27.5-34.5); MEAN CORPUSCULAR HGB CONC 33.4 g/dL (33.2-36.2); MEAN CORPUSCULAR VOLUME 99.2 fL (81-97); MEAN PLATELET VOLUME 7.7 fL (7.4-10.4); PLATELET COUNT 215 x10^3/uL (130-400); RED BLOOD COUNT 4.43 x10^6/uL (4.38-5.82); RED CELL DISTRIBUTION WIDTH 15.7 % (9.4-14.8)
[2018-09-26 23:28] LABS: ALANINE AMINOTRANSFERASE 36 U/L (12-78); ALBUMIN 3.5 g/dL (3.4-5.0); ANION GAP 11 mmol/L (5-15); CALCIUM 8.8 mg/dL (8.5-10.1); CHLORIDE 105 mmol/L (98-107)
[2018-09-26 23:33] LABS: ALKALINE PHOSPHATASE 105 U/L (45-117); BILIRUBIN,TOTAL 1.5 mg/dL (0.2-1.0); CREATININE 1.84 mg/dL (0.7-1.3); TOTAL PROTEIN 6.9 g/dL (6.4-8.2); TROPONIN I 0.055 ng/mL (0.000-0.045)
[2018-09-26 23:42] LABS: BASOPHILS # (AUTO) 0.04 x10^3/uL (0-0.1); BASOPHILS % (AUTO) 1 % (0-1); EOSINOPHILS % (AUTO) 0 % (1-7); LYMPHOCYTES # (AUTO) 0.65 x10^3/uL (1-3.4); LYMPHOCYTES % (AUTO) 9 % (22-44); MD SCAN; MONOCYTES # (AUTO) 0.17 x10^3/uL (0.2-0.8); MONOCYTES % (AUTO) 2 % (2-9); NEUTROPHILS # (AUTO) 6.54 x10^3/uL (1.8-6.8); NEUTROPHILS % (AUTO) 88 % (42-75)
--- NOTE | 2018-09-26 23:56 | NUR ---
PIV started, pt aware of plan to be admitted.
--- NOTE | 2018-09-26 23:59 | NUR ---
Dr. Echavarria at bedside to discuss ED findings and POC.
--- NOTE | 2018-09-27 00:10 | NUR ---
EDT at bedside for EKG.
--- NOTE | 2018-09-27 00:45 | NUR ---
Dr. Moore at bedside to evaluate pt for admission.
[2018-09-27] MEDS ORDERED: POLYETHYLENE GLYCOL 17 GM PACKET PO PRN (01:00)
[2018-09-27] MEDS ORDERED: FUROSEMIDE 40 MG/4 ML IV ONE (01:00)
[2018-09-27] MEDS ORDERED: ONDANSETRON 2MG/ML, 2ML IVPush PRN (01:00)
[2018-09-27] MEDS ORDERED: ACETAMINOPHEN 325 MG TABLET ONE ×2 (01:45→10:13)
[2018-09-27] MEDS ORDERED: FUROSEMIDE 40 MG/4 ML ONE (01:45)
--- NOTE | 2018-09-27 01:45 | NUR ---
Pt medicated per MAR.
[2018-09-27] MEDS: ACETAMINOPHEN 325 MG TABLET PO PRN ×2 (01:48→10:15)
[2018-09-27] MEDS ORDERED: NIAC750T4 PO (02:03)
[2018-09-27] MEDS ORDERED: CLOP75TA52 PO (02:03)
[2018-09-27] MEDS ORDERED: FURO40TA6 PO (02:03)
[2018-09-27] MEDS ORDERED: CLON0.2T PO (02:03)
[2018-09-27 02:22] LABS: BASOPHILS % (AUTO) 0 % (0-1); EOSINOPHILS % (AUTO) 0 % (1-7); LYMPHOCYTES # (AUTO) 0.67 x10^3/uL (1-3.4); LYMPHOCYTES % (AUTO) 10 % (22-44); MD NO; MEAN CORPUSCULAR HEMOGLOBIN 33.1 pg (27.5-34.5); MEAN CORPUSCULAR HGB CONC 33.1 g/dL (33.2-36.2); MEAN CORPUSCULAR VOLUME 99.8 fL (81-97); MEAN PLATELET VOLUME 8.2 fL (7.4-10.4); MONOCYTES # (AUTO) 0.06 x10^3/uL (0.2-0.8); MONOCYTES % (AUTO) 1 % (2-9); NEUTROPHILS # (AUTO) 6.15 x10^3/uL (1.8-6.8); NEUTROPHILS % (AUTO) 89 % (42-75); PLATELET COUNT 208 x10^3/uL (130-400); RED BLOOD COUNT 4.75 x10^6/uL (4.38-5.82); RED CELL DISTRIBUTION WIDTH 16.7 % (9.4-14.8)
[2018-09-27 02:34] LABS: ANION GAP 10 mmol/L (5-15); CALCIUM 9.2 mg/dL (8.5-10.1); CHLORIDE 104 mmol/L (98-107); CREATININE 1.74 mg/dL (0.7-1.3)
--- NOTE | 2018-09-27 02:38 | NUR ---
PT. MOVED FROM ED 12 TO ED 16 AND PLACED ON HOSPITAL BED PT. TO BE HELD IN ED. RECEIVED BS REPORT FROM BEREKET HUSSEIN. PT. PROVIDED WITH PILLOW AND EDUCATED ON USE OF BED CONTROLS. PT. HAS CALL LIGHT IN REACH. CONTINUOUS PULSE OX, B/P, AND HEART MONITORS IN PLACE. PT. DID REQUIRE A LOT OF ASSISTANCE TO STAND/TRANSFER FROM [facility] TO W/C AND W/C INTO HOSPITAL BED BUT WAS STAEDY ONCE STANDING. PT. REPORTS USE OF WALKER AT HOME WHEN GETTING OUT OF BED BUT STATES ONCE OUT OF BED HE DOESN'T NEED IT. PT. BECAME VERY SOB WITH THIS TRANSFER WELL BUT RECOVERED QUICKLY. PT. DENIES NEEDS AT THIS TIME. ALL SAFEY MEASURES OBSERVED.
[2018-09-27 02:52] LABS: TROPONIN I 0.054 ng/mL (0.000-0.045)
[2018-09-27] MEDS ORDERED: hydrALAzine 20 MG/ML, 1ML ONE ×2 (03:07→08:14)
[2018-09-27] MEDS: hydrALAzine 20 MG/ML, 1ML IVPush PRN ×3 (03:13→20:59)
--- NOTE | 2018-09-27 03:14 | NUR ---
MEDICATED PT. PER MAR WITH PRN. WILL CONTINUE TO MONITOR. PT. DENIES OTHER NEEDS.
--- NOTE | 2018-09-27 03:43 | NUR ---
B/P IMPROVED CHARTED. URINAL EMPTIED. PT. PROVIDED WITH 8OZ CUP WATER PER REQUEST. NADN. DENIES OTHER NEEDS. CALL LIGHT IN RAECH. ALL MONITORS REMAIN IN PLACE. ALL SAFETY MEASURES OBSERVED.
--- NOTE | 2018-09-27 04:34 | NUR ---
PT. REPORTS BEING COLD; [employer] PAW WARMER PROVIDED TO PT. AND PT. REPORTS IMMEDIATELY BEING MORE COMFORTABLE. URINAL EMPTIED. PT. DENIES OTHER NEEDS. CALL LIGHT IN REACH. ALL SAFETY MEASURES OBSERVED.
--- NOTE | 2018-09-27 05:51 | NUR ---
PT. CONTINUES RESTING ON BED WITH NADN. TV ON AND PT. HAS BEEN AWAKE EACH HOURLY ROUNDING. PT. DENIES ANY NEEDS; URINAL HAS BEEN EMPTIED. CALL LIGHT REAMIANS IN REACH. ALL SAFETY MEASURES OBSERVED.
--- NOTE | 2018-09-27 07:48 | NUR ---
LATE NOTE ENTRY FOR 0715. Recieved report from BEREKET Love. All questions answered. Assuming care of this pt.
--- NOTE | 2018-09-27 07:55 | NUR ---
Pt resting on hospital bed looking at cell phone. NADN. No needs expressed.
[2018-09-27] MEDS ORDERED: HEPARIN 5,000 UNITS/ML, 1ML ONE (08:14)
[2018-09-27] MEDS: SODIUM CHLORIDE FLUSH 10ML SYR IVF SCH ×2 (08:22→22:02)
[2018-09-27] MEDS: HEPARIN 5,000 UNITS/ML, 1ML SQ SCH ×2 (08:22→20:59)
[2018-09-27 08:28] LABS: TROPONIN I 0.053 ng/mL (0.000-0.045)
[2018-09-27] MEDS: NITROGLYCERIN 0.4 MG BOTTLE (25 TABS) SL PRN ×2 (09:56→10:07)
--- NOTE | 2018-09-27 09:57 | NUR ---
Pt c/o "chest discomfort and back pain." Pt provided medication per EMAR. Pt tachycardic in the 120's prior to medication admin. Pt sitting up in bed stating, "Between the pain in my knees my back and my feet I think it is stressging me."
--- NOTE | 2018-09-27 10:09 | NUR ---
Provided second dose of nitroglycerin sublingal tablet 0.4 mg per EMAR due to continuing "chest discomfort" that has not resolved for the pt. Pt sitting in hospital bed and heart rate is between 100-110, spo2% is 95% on room air, respiratory rate is 12, and bp is 154/87. Hospitalist [employer]ICIAN HELPER aware.
--- NOTE | 2018-09-27 10:36 | NUR ---
EKG performed by physical therapist technician. EDMD saw EKG, no CO concerns per EDMD at this time. Spoke to admitting hospitalist, no further action requested at this time. Per admitting hospitalist, repeat troponin labs will continue every 6 hours. Pt unable to identify otc arthritis pain medication he takes at home at this time. Pt provided tylenol per EMAR for pain management at this time. Admitting MD aware that pt is requesting unknown otc arthritis pain medicaition.
--- NOTE | 2018-09-27 11:26 | NUR ---
Pt resting on hospital bed connected to all monitors. Pt states, "I am just in a lot of pain right now." Pt's heart rate continues to go between 100-130. BP at 143/95 at this time. All safety measures in place. No other needs requested at this time.
--- NOTE | 2018-09-27 13:11 | NUR ---
[facility] TELEPHONE HAND-OFF REPORT GIVEN TO BEREKET JUAREZ. PATIENT READY TO GO TO HOSPITAL ROOM.
[2018-09-27 13:43] VITALS: BP 154/99
[2018-09-27 15:21] LABS: TROPONIN I 0.357 ng/mL (0.000-0.045)
[2018-09-27 20:38] VITALS: BP_SYST 176; BP_SYST 181; BP_DIAS 128; BP_DIAS 130
[2018-09-27] MEDS ORDERED: CARVEDILOL 25 MG TABLET PO SCH (21:30)
[2018-09-27] MEDS ORDERED: LOSARTAN 50MG TABLET PO SCH (21:30)
[2018-09-27] MEDS: COREG MC SCH ×2 (23:01→23:07)
[2018-09-28 00:05] VITALS: BP 152/91
[2018-09-28 03:44] LABS: ANION GAP 10 mmol/L (5-15); CHLORIDE 105 mmol/L (98-107); CREATININE 1.63 mg/dL (0.7-1.3); TRIGLYCERIDES 89 mg/dL (50-200); VLDL CHOLESTEROL 18 mg/dL (0-25)
[2018-09-28 03:45] LABS: CHOL/HDL RATIO 5.2; CHOLESTEROL, TOTAL 162 mg/dL (140-239); HDL CHOL % 19 % (26-37); HDL CHOLESTEROL (DIRECT) 31 mg/dL (40-60); LDL CHOLESTEROL,CALCULATED 113 mg/dL (54-169); LDL/HDL RATIO 3.6 (0.5-3.0)
[2018-09-28 06:58] VITALS: BP 184/121
[2018-09-28] MEDS: LOSARTAN 50MG TABLET PO SCH (08:15)
[2018-09-28] MEDS: SODIUM CHLORIDE FLUSH 10ML SYR IVF SCH ×2 (08:15→21:20)
[2018-09-28] MEDS: HEPARIN 5,000 UNITS/ML, 1ML SQ SCH ×3 (08:21→09:00)
[2018-09-28] MEDS ORDERED: LABETALOL 5MG/ML, 20ML IVPush PRN (09:30)
[2018-09-28] MEDS ORDERED: FUROSEMIDE 40 MG/4 ML IV ONE (09:30)
[2018-09-28] MEDS: ENOXAPARIN 100 MG/ML SQ SCH ×2 (11:42→21:26)
[2018-09-28] MEDS: ASPIRIN 81 MG TABLET EC PO SCH (11:42)
[2018-09-28] MEDS: CLOPIDOGREL 75 MG TABLET PO SCH (11:42)
[2018-09-28 12:56] VITALS: BP 155/107
[2018-09-28] MEDS: COREG MC SCH (14:30)
[2018-09-28 18:32] VITALS: BP 150/94
[2018-09-28] MEDS ORDERED: COREG MC SCH (19:00)
[2018-09-28] MEDS ORDERED: CARVEDILOL 25 MG TABLET PO SCH (19:40)
[2018-09-28] MEDS ORDERED: ATORVASTATIN 80 MG TABLET PO SCH (21:00)
[2018-09-29 03:03] VITALS: BP 161/96
[2018-09-29 03:44] VITALS: BP 134/85
[2018-09-29 05:12] LABS: BASOPHILS # (AUTO) 0.04 x10^3/uL (0-0.1); BASOPHILS % (AUTO) 0 % (0-1); EOSINOPHILS # (AUTO) 0.08 x10^3/uL (0-0.4); EOSINOPHILS % (AUTO) 1 % (1-7); LYMPHOCYTES # (AUTO) 2.18 x10^3/uL (1-3.4); LYMPHOCYTES % (AUTO) 17 % (22-44); MD NO; MEAN CORPUSCULAR HEMOGLOBIN 32.5 pg (27.5-34.5); MEAN CORPUSCULAR HGB CONC 32.3 g/dL (33.2-36.2); MEAN CORPUSCULAR VOLUME 100.7 fL (81-97); MEAN PLATELET VOLUME 7.7 fL (7.4-10.4); MONOCYTES # (AUTO) 0.81 x10^3/uL (0.2-0.8); MONOCYTES % (AUTO) 6 % (2-9); NEUTROPHILS # (AUTO) 9.66 x10^3/uL (1.8-6.8); NEUTROPHILS % (AUTO) 76 % (42-75); PLATELET COUNT 292 x10^3/uL (130-400); RED BLOOD COUNT 4.76 x10^6/uL (4.38-5.82); RED CELL DISTRIBUTION WIDTH 16.7 % (9.4-14.8)
[2018-09-29 05:24] LABS: CHLORIDE 108 mmol/L (98-107)
[2018-09-29] MEDS: ASPIRIN 81 MG TABLET EC PO SCH (05:28)
[2018-09-29 05:30] LABS: ANION GAP 8 mmol/L (5-15); CALCIUM 8.8 mg/dL (8.5-10.1); CREATININE 1.67 mg/dL (0.7-1.3)
[2018-09-29 07:25] VITALS: BP 160/109
[2018-09-29] MEDS: HEPARIN 5,000 UNITS/ML, 1ML SQ SCH (07:46)
[2018-09-29] MEDS: ENOXAPARIN 100 MG/ML SQ SCH (08:47)
[2018-09-29] MEDS: CLOPIDOGREL 75 MG TABLET PO SCH (08:47)
[2018-09-29] MEDS: LOSARTAN 50MG TABLET PO SCH (08:47)
[2018-09-29] MEDS: SODIUM CHLORIDE FLUSH 10ML SYR IVF SCH (08:48)
[2018-09-29 09:29] LABS: TROPONIN I 0.826 ng/mL (0.000-0.045)
[2018-09-29] MEDS ORDERED: ATOR-2 PO (12:14)
[2018-09-29] MEDS ORDERED: ISOS30TA8 PO (12:14)
[2018-09-29] MEDS ORDERED: ASPI81TA45 PO (12:14)
[2018-09-29] MEDS ORDERED: ISOSORBIDE MONONITRATE ER 30 MG TABLET PO SCH (12:30)
[2018-09-29 12:59] VITALS: BP 148/97
[2018-09-29 14:53] VITALS: BP 155/100
== END 2018-09-29 16:10 | disposition home or self-care (01) | DRG 280 ==
LOC: ED 23:42 → EDIP 09-27 00:18 → SUATTDRO 09-27 00:43 → 5SO 09-27 13:36 → DCLOUNGE 09-29 16:00
PROVIDERS: ADMIT Hospitalist; ATTEND Hospitalist
DX: I21.4 Non-ST elevation (NSTEMI) myocardial infarction (principal); I50.33 Acute on chronic diastolic (congestive) heart failure; I13.0 Hypertensive heart and chronic kidney disease with heart failure and stage 1 through stage 4 chronic kidney disease, or unspecified chronic kidney disease; N17.9 Acute kidney failure, unspecified; E78.5 Hyperlipidemia, unspecified; I16.0 Hypertensive urgency; I25.10 Atherosclerotic heart disease of native coronary artery without angina pectoris; I25.5 Ischemic cardiomyopathy; I34.0 Nonrheumatic mitral (valve) insufficiency; I35.0 Nonrheumatic aortic (valve) stenosis; I70.0 Atherosclerosis of aorta; I73.9 Peripheral vascular disease, unspecified; M10.9 Gout, unspecified; K21.9 Gastro-esophageal reflux disease without esophagitis; L40.9 Psoriasis, unspecified; M19.90 Unspecified osteoarthritis, unspecified site; N18.9 Chronic kidney disease, unspecified; Z86.73 Personal history of transient ischemic attack (TIA), and cerebral infarction without residual deficits; Z87.891 Personal history of nicotine dependence; Z95.5 Presence of coronary angioplasty implant and graft; I25.2 Old myocardial infarction; Z87.01 Personal history of pneumonia (recurrent); Z79.899 Other long term (current) drug therapy; Z79.82 Long term (current) use of aspirin; Z88.0 Allergy status to penicillin
CPT/HCPCS: 36415; 71045; 80048; 80053; 80061; 83735; 83880; 84100; 84443; 84484; 85025; 93005; 93306; 96374; G0378; J1644; J1650; J1940; J0360

== ENCOUNTER 2018-09-29 23:05 | Inpatient (IN) | payer MEDICARE ==
[~2018-09-29] VITALS: Ht 190.5 cm; Wt 101.2 kg
[~2018-09-29 23:05] MED LIST changes: +ATOR-2 PO; +NIAC750T4 PO
--- NOTE | 2018-09-29 23:15 | NUR ---
IF PT. TO D/C [facility] WILL COME PICK HIM UP. PHONE NUMBER [phone]
--- NOTE | 2018-09-29 23:22 | NUR ---
PT PRESENTED WITH C/O LEFT NECK PAIN AND SWELLING THAT HE NOTICED TONIGHT. PT WAS D/C FROM HOSPITAL TODAY WAS ADMITTED WITH DYSPNEA. MONITORS APPLIED, SIDERAILS UP X2, CALL LIGHT WITHIN REACH. AWAITING ERP FOR EVAL AND ORDERS
[2018-09-29 23:58] LABS: BASOPHILS # (AUTO) 0.02 x10^3/uL (0-0.1); BASOPHILS % (AUTO) 0 % (0-1); EOSINOPHILS # (AUTO) 0.06 x10^3/uL (0-0.4); EOSINOPHILS % (AUTO) 1 % (1-7); LYMPHOCYTES # (AUTO) 1.52 x10^3/uL (1-3.4); LYMPHOCYTES % (AUTO) 13 % (22-44); MD NO; MEAN CORPUSCULAR HEMOGLOBIN 32.9 pg (27.5-34.5); MEAN CORPUSCULAR HGB CONC 32.9 g/dL (33.2-36.2); MEAN CORPUSCULAR VOLUME 100.1 fL (81-97); MEAN PLATELET VOLUME 7.5 fL (7.4-10.4); MONOCYTES # (AUTO) 1.37 x10^3/uL (0.2-0.8); MONOCYTES % (AUTO) 12 % (2-9); NEUTROPHILS # (AUTO) 9.02 x10^3/uL (1.8-6.8); NEUTROPHILS % (AUTO) 75 % (42-75); PLATELET COUNT 301 x10^3/uL (130-400); RED BLOOD COUNT 4.26 x10^6/uL (4.38-5.82); RED CELL DISTRIBUTION WIDTH 16.7 % (9.4-14.8)
[2018-09-29] MEDS ORDERED: MORPHINE SULFATE 4 MG/ML, 1ML ONE (23:59)
[2018-09-30] VITALS (10 sets, daily range): BP systolic 88–175; BP diastolic 59–126
[2018-09-30] MEDS ORDERED: ONDANSETRON 2MG/ML, 2ML ONE
[2018-09-30] MEDS ORDERED: ONDANSETRON 2MG/ML, 2ML IVPush ONE
[2018-09-30] MEDS ORDERED: MORPHINE SULFATE 4 MG/ML, 1ML IVPush PRN
--- NOTE | 2018-09-30 00:04 | NUR ---
task RN note: EKG taken by this RN; reviewed by REID
[2018-09-30 00:10] LABS: ALANINE AMINOTRANSFERASE 61 U/L (12-78); ALBUMIN 3.4 g/dL (3.4-5.0); ANION GAP 7 mmol/L (5-15); CALCIUM 8.7 mg/dL (8.5-10.1); CHLORIDE 108 mmol/L (98-107); CREATININE 1.56 mg/dL (0.7-1.3)
[2018-09-30 00:13] LABS: ALKALINE PHOSPHATASE 92 U/L (45-117); BILIRUBIN,TOTAL 1.4 mg/dL (0.2-1.0); TOTAL PROTEIN 6.6 g/dL (6.4-8.2)
--- NOTE | 2018-09-30 00:15 | NUR ---
IV SITE STARTED, PT MEDICATED PER MAR
[2018-09-30] MEDS ORDERED: OMNIPAQUE 350 MG/ML, 100ML BOTTLE ONE (00:41)
--- NOTE | 2018-09-30 01:21 | NUR ---
TASK RN: PT LAYING IN YUAN, AMAURY NOTED. RESPIRATIONS EVEN AND UNLABORED. PT REPORTS ABD PAIN, DENIES NEED FOR PAIN MEDICATIONS AT THIS TIME. PT ASSISTED TO SIDE LYING AND PROVIDED URINAL PER REQUEST.
--- NOTE | 2018-09-30 01:45 | NUR ---
TASK RN: CT FINDINGS DISCUSSED WITH ERP. PT UPDATED. SPEECH MILDLY MUFFLED. AIRWAY PATENT AND PT IS MANAGING OWN SECRETIONS WO DIFFICULTY. SPO2 >90% ON RA. RR WNL; RESPIRATIONS EVEN AND UNLABORED.
[2018-09-30] MEDS ORDERED: HYDROmorphone 1 MG/ML, 1ML ONE (02:38)
[2018-09-30] MEDS ORDERED: HYDROmorphone 1 MG/ML, 1ML IV ONE (03:00)
--- NOTE | 2018-09-30 03:22 | NUR ---
PT RESTING WITH EYES CLOSED, NADN, OPENS EYES TO VERBAL RESPONSE, MONITORS IN PLACE, CALL LIGHT WITHIN REACH. AWAITING ROOM FOR TRANSFER
[2018-09-30] MEDS ORDERED: hydrALAzine 20 MG/ML, 1ML ONE (04:51)
[2018-09-30] MEDS: hydrALAzine 20 MG/ML, 1ML IVPush PRN (04:53)
[2018-09-30] MEDS ORDERED: ACETAMINOPHEN 325 MG TABLET PO PRN (05:00)
[2018-09-30] MEDS ORDERED: POLYETHYLENE GLYCOL 17 GM PACKET PO PRN (05:00)
[2018-09-30] MEDS ORDERED: ONDANSETRON 2MG/ML, 2ML IVPush PRN (05:00)
[2018-09-30] MEDS: CARVEDILOL 12.5 MG TABLET PO SCH ×2 (06:10→18:00)
[2018-09-30] MEDS: ISOSORBIDE MONONITRATE ER 30 MG TABLET PO SCH (09:00)
[2018-09-30] MEDS: FUROSEMIDE 40 MG TABLET PO SCH ×2 (09:00→20:11)
[2018-09-30] MEDS ORDERED: NIACIN 750 MG TABLET.ER PO SCH (09:00)
[2018-09-30] MEDS: LOSARTAN 50MG TABLET PO SCH ×2 (09:00→20:16)
[2018-09-30] MEDS: MAGNESIUM OXIDE 400 MG TABLET PO SCH ×2 (10:01→20:12)
[2018-09-30] MEDS: ASCORBIC ACID 500 MG TABLET PO SCH (10:01)
[2018-09-30] MEDS: CHOLECALCIFEROL 1,000 UNIT TABLET PO SCH ×2 (10:01→20:12)
[2018-09-30] MEDS: SODIUM CHLORIDE FLUSH 10ML SYR IVF SCH ×2 (10:04→20:12)
[2018-09-30] MEDS: NIACIN 500 MG TABLET.ER PO SCH ×2 (11:29→20:11)
[2018-09-30 13:47] LABS: AMPHETAMINE SCREEN, URINE Negative (Negative); BARBITURATE SCREEN, URINE Negative (Negative); BENZODIAZEPINE SCREEN, URINE Negative (Negative); CANNABINOID SCREEN, URINE Negative (Negative); COCAINE SCREEN, URINE Negative (Negative); METHADONE SCREEN, URINE Negative (Negative); OPIATE SCREEN, URINE Positive (Negative)
--- NOTE | 2018-09-30 17:57 | NUR ---
REC: Chopped diet with thin liquids Addendum: 09/30/18 at 1758 by Shasta HERRERA Amended: Links added.
[2018-09-30] MEDS: ATORVASTATIN 80 MG TABLET PO SCH (20:16)
[2018-09-30] MEDS: OXYcodone IR 5MG TABLET PO PRN (23:31)
[2018-10-01] VITALS (11 sets, daily range): BP systolic 112–190; BP diastolic 65–147
[2018-10-01] MEDS: LOSARTAN 50MG TABLET PO SCH ×3 (01:24→21:04)
[2018-10-01 01:42] LABS: BASOPHILS # (AUTO) 0.03 x10^3/uL (0-0.1); BASOPHILS % (AUTO) 0 % (0-1); EOSINOPHILS # (AUTO) 0.13 x10^3/uL (0-0.4); EOSINOPHILS % (AUTO) 1 % (1-7); LYMPHOCYTES # (AUTO) 1.28 x10^3/uL (1-3.4); LYMPHOCYTES % (AUTO) 13 % (22-44); MD NO; MEAN CORPUSCULAR HEMOGLOBIN 32.9 pg (27.5-34.5); MEAN PLATELET VOLUME 7.6 fL (7.4-10.4); MONOCYTES # (AUTO) 0.88 x10^3/uL (0.2-0.8); MONOCYTES % (AUTO) 9 % (2-9); NEUTROPHILS % (AUTO) 76 % (42-75); PLATELET COUNT 272 x10^3/uL (130-400); RED CELL DISTRIBUTION WIDTH 16.5 % (9.4-14.8)
[2018-10-01 01:46] LABS: ANION GAP 7 mmol/L (5-15); CALCIUM 8.6 mg/dL (8.5-10.1); CHLORIDE 106 mmol/L (98-107)
[2018-10-01] MEDS: hydrALAzine 20 MG/ML, 1ML IVPush PRN (02:01)
[2018-10-01] MEDS: OXYcodone IR 5MG TABLET PO PRN ×2 (03:38→18:36)
[2018-10-01] MEDS: CARVEDILOL 6.25 MG TABLET PO SCH ×2 (05:39→18:36)
[2018-10-01] MEDS: MAGNESIUM OXIDE 400 MG TABLET PO SCH ×2 (09:00→21:05)
[2018-10-01] MEDS: NIACIN 500 MG TABLET.ER PO SCH ×2 (09:03→21:04)
[2018-10-01] MEDS: ASCORBIC ACID 500 MG TABLET PO SCH (09:03)
[2018-10-01] MEDS: ISOSORBIDE MONONITRATE ER 30 MG TABLET PO SCH (09:03)
[2018-10-01] MEDS: CHOLECALCIFEROL 1,000 UNIT TABLET PO SCH ×2 (09:04→21:05)
[2018-10-01] MEDS: FUROSEMIDE 40 MG TABLET PO SCH ×2 (09:04→21:04)
[2018-10-01] MEDS: SODIUM CHLORIDE FLUSH 10ML SYR IVF SCH ×2 (09:04→21:05)
[2018-10-01] MEDS ORDERED: OMNIPAQUE 350 MG/ML, 100ML BOTTLE ONE (15:20)
[2018-10-01] MEDS: ATORVASTATIN 80 MG TABLET PO SCH (21:08)
[2018-10-02 02:44] VITALS: BP 124/81
[2018-10-02 04:29] LABS: BASOPHILS # (AUTO) 0.03 x10^3/uL (0-0.1); BASOPHILS % (AUTO) 0 % (0-1); EOSINOPHILS # (AUTO) 0.22 x10^3/uL (0-0.4); EOSINOPHILS % (AUTO) 3 % (1-7); LYMPHOCYTES # (AUTO) 1.31 x10^3/uL (1-3.4); LYMPHOCYTES % (AUTO) 15 % (22-44); MD NO; MEAN CORPUSCULAR HEMOGLOBIN 32.9 pg (27.5-34.5); MEAN CORPUSCULAR HGB CONC 32.8 g/dL (33.2-36.2); MEAN CORPUSCULAR VOLUME 100.2 fL (81-97); MEAN PLATELET VOLUME 7.3 fL (7.4-10.4); MONOCYTES # (AUTO) 0.85 x10^3/uL (0.2-0.8); MONOCYTES % (AUTO) 10 % (2-9); NEUTROPHILS # (AUTO) 6.18 x10^3/uL (1.8-6.8); NEUTROPHILS % (AUTO) 72 % (42-75); PLATELET COUNT 280 x10^3/uL (130-400); RED BLOOD COUNT 3.42 x10^6/uL (4.38-5.82); RED CELL DISTRIBUTION WIDTH 15.9 % (9.4-14.8)
[2018-10-02 04:40] LABS: CHLORIDE 106 mmol/L (98-107)
[2018-10-02 04:45] LABS: ANION GAP 7 mmol/L (5-15); CALCIUM 8.5 mg/dL (8.5-10.1); CREATININE 1.28 mg/dL (0.7-1.3)
[2018-10-02] MEDS: CARVEDILOL 6.25 MG TABLET PO SCH ×2 (06:25→18:19)
[2018-10-02] MEDS: OXYcodone IR 5MG TABLET PO PRN ×3 (06:25→22:32)
[2018-10-02 08:07] VITALS: BP 132/82
[2018-10-02] MEDS: SODIUM CHLORIDE FLUSH 10ML SYR IVF SCH ×2 (09:18→21:45)
[2018-10-02] MEDS: ISOSORBIDE MONONITRATE ER 30 MG TABLET PO SCH (09:18)
[2018-10-02] MEDS: MAGNESIUM OXIDE 400 MG TABLET PO SCH ×2 (09:18→21:44)
[2018-10-02] MEDS: ASCORBIC ACID 500 MG TABLET PO SCH (09:18)
[2018-10-02] MEDS: LOSARTAN 50MG TABLET PO SCH ×2 (09:18→21:45)
[2018-10-02] MEDS: NIACIN 500 MG TABLET.ER PO SCH ×2 (09:18→21:44)
[2018-10-02] MEDS: FUROSEMIDE 40 MG TABLET PO SCH ×2 (09:18→21:44)
[2018-10-02] MEDS: CHOLECALCIFEROL 1,000 UNIT TABLET PO SCH ×2 (09:19→21:44)
[2018-10-02 12:18] VITALS: BP 132/73
[2018-10-02 19:42] VITALS: BP 142/99
[2018-10-02] MEDS: ATORVASTATIN 80 MG TABLET PO SCH (21:47)
[2018-10-03 03:07] VITALS: BP 125/71
[2018-10-03 05:41] LABS: BASOPHILS # (AUTO) 0.03 x10^3/uL (0-0.1); BASOPHILS % (AUTO) 0 % (0-1); EOSINOPHILS # (AUTO) 0.12 x10^3/uL (0-0.4); EOSINOPHILS % (AUTO) 1 % (1-7); LYMPHOCYTES # (AUTO) 1.15 x10^3/uL (1-3.4); LYMPHOCYTES % (AUTO) 13 % (22-44); MD NO; MEAN CORPUSCULAR HEMOGLOBIN 33.3 pg (27.5-34.5); MEAN CORPUSCULAR HGB CONC 33.6 g/dL (33.2-36.2); MEAN CORPUSCULAR VOLUME 99.1 fL (81-97); MEAN PLATELET VOLUME 6.9 fL (7.4-10.4); MONOCYTES % (AUTO) 12 % (2-9); NEUTROPHILS # (AUTO) 6.79 x10^3/uL (1.8-6.8); NEUTROPHILS % (AUTO) 74 % (42-75); PLATELET COUNT 302 x10^3/uL (130-400); RED BLOOD COUNT 3.61 x10^6/uL (4.38-5.82)
[2018-10-03 05:56] LABS: CALCIUM 8.8 mg/dL (8.5-10.1); CHLORIDE 104 mmol/L (98-107)
[2018-10-03 06:02] LABS: ALANINE AMINOTRANSFERASE 36 U/L (12-78); ALKALINE PHOSPHATASE 75 U/L (45-117); ANION GAP 8 mmol/L (5-15); BILIRUBIN,TOTAL 1.2 mg/dL (0.2-1.0); CREATININE 1.27 mg/dL (0.7-1.3); TOTAL PROTEIN 6.5 g/dL (6.4-8.2)
[2018-10-03] MEDS: CARVEDILOL 6.25 MG TABLET PO SCH ×2 (06:20→18:05)
[2018-10-03 07:03] VITALS: BP 138/95
[2018-10-03] MEDS: CHOLECALCIFEROL 1,000 UNIT TABLET PO SCH ×2 (08:36→22:25)
[2018-10-03] MEDS: SODIUM CHLORIDE FLUSH 10ML SYR IVF SCH ×2 (08:36→22:25)
[2018-10-03] MEDS: MAGNESIUM OXIDE 400 MG TABLET PO SCH ×2 (08:37→22:24)
[2018-10-03] MEDS: NIACIN 500 MG TABLET.ER PO SCH ×2 (08:37→22:25)
[2018-10-03] MEDS: FUROSEMIDE 40 MG TABLET PO SCH ×2 (08:37→22:24)
[2018-10-03] MEDS: ISOSORBIDE MONONITRATE ER 30 MG TABLET PO SCH (08:37)
[2018-10-03] MEDS: ASCORBIC ACID 500 MG TABLET PO SCH (08:37)
[2018-10-03] MEDS: LOSARTAN 50MG TABLET PO SCH ×2 (08:38→22:24)
[2018-10-03] MEDS ORDERED: CALAMINE LOTION 180ML TP PRN (09:30)
[2018-10-03] MEDS ORDERED: DIPHENHYDRAMINE 25 MG CAPSULE PO PRN (09:30)
[2018-10-03 12:15] VITALS: BP 110/66
[2018-10-03] MEDS: OXYcodone IR 5MG TABLET PO PRN (16:23)
[2018-10-03 18:38] VITALS: BP 124/79
[2018-10-03] MEDS: ATORVASTATIN 80 MG TABLET PO SCH (21:00)
[2018-10-04 03:40] VITALS: BP 109/71
[2018-10-04 05:25] VITALS: BP 115/69
[2018-10-04] MEDS: CARVEDILOL 6.25 MG TABLET PO SCH (05:26)
[2018-10-04 07:15] VITALS: BP 138/79
[2018-10-04] MEDS: LOSARTAN 50MG TABLET PO SCH (10:15)
[2018-10-04] MEDS: CHOLECALCIFEROL 1,000 UNIT TABLET PO SCH (10:15)
[2018-10-04] MEDS: MAGNESIUM OXIDE 400 MG TABLET PO SCH (10:15)
[2018-10-04] MEDS: ASCORBIC ACID 500 MG TABLET PO SCH (10:15)
[2018-10-04] MEDS: NIACIN 500 MG TABLET.ER PO SCH (10:15)
[2018-10-04] MEDS: ISOSORBIDE MONONITRATE ER 30 MG TABLET PO SCH (10:15)
[2018-10-04] MEDS: SODIUM CHLORIDE FLUSH 10ML SYR IVF SCH (10:16)
[2018-10-04] MEDS: FUROSEMIDE 40 MG TABLET PO SCH (10:16)
[2018-10-04 12:39] VITALS: BP 110/70
[2018-10-04] MEDS: OXYcodone IR 5MG TABLET PO PRN (13:40)
== END 2018-10-04 16:30 | disposition home or self-care (01) | DRG 604 ==
LOC: ED 09-30 00:40 → EDIP 09-30 02:36 → 4EST 09-30 05:19 → DCLOUNGE 10-04 16:00
PROVIDERS: ADMIT Hospitalist; ATTEND Hospitalist
DX: S10.93XA Contusion of unspecified part of neck, initial encounter (principal); I21.4 Non-ST elevation (NSTEMI) myocardial infarction; I13.0 Hypertensive heart and chronic kidney disease with heart failure and stage 1 through stage 4 chronic kidney disease, or unspecified chronic kidney disease; I25.10 Atherosclerotic heart disease of native coronary artery without angina pectoris; N18.9 Chronic kidney disease, unspecified; R13.10 Dysphagia, unspecified; I50.9 Heart failure, unspecified; I73.9 Peripheral vascular disease, unspecified; M43.6 Torticollis; D72.829 Elevated white blood cell count, unspecified; Z87.01 Personal history of pneumonia (recurrent); I25.2 Old myocardial infarction; Z95.5 Presence of coronary angioplasty implant and graft; Z91.19 Patient's noncompliance with other medical treatment and regimen; Z86.73 Personal history of transient ischemic attack (TIA), and cerebral infarction without residual deficits
CPT/HCPCS: 36415; 70491; 71045; 80048; 80053; 80307; 83735; 84100; 85014; 85018; 85025; 93005; 96374; 96375; G0378; J1170; J2405; Q9967; J0360

== ENCOUNTER 2019-02-09 05:36 | Emergency (ER) | payer MEDICARE ==
[~2019-02-09] VITALS: Ht 190.5 cm; Wt 100.7 kg
[2019-02-09] MEDS ORDERED: KETOROLAC 30 MG/1 ML IM ONE (06:30)
[2019-02-09] MEDS ORDERED: DIAZEPAM 5 MG TABLET PO ONE (06:30)
[2019-02-09] MEDS ORDERED: DIAZEPAM 5 MG TABLET ONE (06:31)
[2019-02-09] MEDS ORDERED: OMEPRAZOLE 20 MG CAPSULE.DR ONE (06:31)
[2019-02-09] MEDS ORDERED: KETOROLAC 60 MG/2 ML ONE (06:31)
--- NOTE | 2019-02-09 06:37 | NUR ---
30 mg toradol wasted into sharps.
[2019-02-09] MEDS ORDERED: HYDROmorphone 2 MG/ML, 1ML IM PRN (07:30)
--- NOTE | 2019-02-09 07:32 | NUR ---
FIRST CONTACT WITH PT. PT REPORTS THAT HIS PAIN IS STILL AT A 5 AND HE HAS LIMITED ROM WHEN ATTEMPTING TO LOOK FROM SIDE TO SIDE. PT CANNOT LIFT HIS HEAD TO LOOK UP. PER PT REPORT "HIS DOCTOR (DR VILLATORO) TOLD HIM HE MIGHT HAVE ALS ABOUT 2 YEARS AGO". VSS. PT IN STABLE CONDITION AND DENIES ANY NEEDS.
[2019-02-09] MEDS ORDERED: HYDROmorphone 2 MG/ML, 1ML ONE (07:52)
--- NOTE | 2019-02-09 08:07 | NUR ---
PT MEDICATED FOR PAIN. PT REPORTS HE HAS HAD DILAUDID IN THE PAST AND HAD NO ADVERSE REACTION. VSS.
--- NOTE | 2019-02-09 08:44 | NUR ---
PT TAKEN FORM IMAGING
[2019-02-09] MEDS ORDERED: GADOBUTROL 10 MMOL/10 ML PFS ONE (09:00)
--- NOTE | 2019-02-09 09:24 | NUR ---
PT BACK IN ROOM
--- NOTE | 2019-02-09 09:33 | NUR ---
PT BACK FROM IMAGING. BP IS IN THE 180'S, PT REPORTS "I HAVE NOT TAKEN MY BP MEDS YET TODAY". HTN REPORTED TO MD. PT OXYGEN SAT WAS AT 85 UPON RETURN FROM IMAGING, PT NOW ON 1 LITER AND O2SAT IS99. NO ACUTE SIGNS OF DISTRESS. PT DENIES ANY NEEDS.
[2019-02-09 10:03] VITALS: BP 167/96
--- NOTE | 2019-02-09 10:04 | NUR ---
PT NO LONGER REQUIRES O2, HE IS HOLDING STEADY IN THE MID-90'S FOR HIS OXYGEN SAT. PT STATES "I HAVE NO PAIN RIGHT NOW". VSS. NO ACUTE SIGNS OF DISTRESS. PT STATES,
--- NOTE | 2019-02-09 10:06 | NUR ---
PT STATES "I FEEL READY TO GO HOME"
--- NOTE | 2019-02-09 10:08 | NUR ---
PT INSTRUCTED NOT TO DRIVE HOME DUE TO MEDICATION, PT VERBALIZED UNDERSTANDING AND SAYS HE WILL CALL FOR A RIDE.
--- NOTE | 2019-02-09 10:11 | NUR ---
PT INFORMED PT THAT HIS BLOOD PRESSURE WAS ELEVATED AND WE COULD GIVE HIM BLOOD PRESSURE MEDICATION PRIOR TO DISCHARGE, PT DECLINED. HE SAID, "I'LL TAKE MINE WHEN I GET HOME".
--- NOTE | 2019-02-09 10:34 | NUR ---
PT DISCHARGED IN STABLE CONDITION, PT WHEELED TO EXIT DESK. ALL DISCHARGE INSTRUCTIONS EXPLAINED TO PT, WITH DETAILED EDUCATION REGARDING NARCOTIC MEDICATION AND RISK OF RESP DISTRESS. PT VERBALIZED UNDERSTANDING OF ALL INSTRUCTIONS. PT TOLD AGAIN NOT TO DRIVE TODAY, PT STATES HE HAS A RIDE COMING AND HE WILL NOT DRIVE. IV REMOVED. PT DENIES ANY ADDITONAL NEEDS.
== END 2019-02-09 10:25 | disposition home or self-care (01) ==
LOC: ED 06:46
DX: S16.1XXA Strain of muscle, fascia and tendon at neck level, initial encounter (principal); M47.892 Other spondylosis, cervical region; I25.10 Atherosclerotic heart disease of native coronary artery without angina pectoris; I11.0 Hypertensive heart disease with heart failure; I50.9 Heart failure, unspecified; I25.2 Old myocardial infarction; Z86.73 Personal history of transient ischemic attack (TIA), and cerebral infarction without residual deficits; Z88.0 Allergy status to penicillin; X58.XXXA Exposure to other specified factors, initial encounter; Y93.89 Activity, other specified; Y92.89 Other specified places as the place of occurrence of the external cause; Y99.8 Other external cause status
CPT/HCPCS: 72156; 96372; 99284; A9585; J1170; J1885; J7512

== ENCOUNTER 2019-04-03 21:32 | Inpatient (IN) | payer MEDICARE ==
[~2019-04-03] VITALS: Ht 190.5 cm; Wt 100.1 kg
[2019-04-06 12:18] VITALS: BP 148/91
== END 2019-04-06 20:39 | disposition home or self-care (01) | DRG 291 ==
LOC: ED 23:42 → EDIP 04-04 00:10 → 5SO 04-04 01:02
PROVIDERS: ADMIT Internal Medicine; ATTEND Internal Medicine
DX: I13.0 Hypertensive heart and chronic kidney disease with heart failure and stage 1 through stage 4 chronic kidney disease, or unspecified chronic kidney disease (principal); I50.23 Acute on chronic systolic (congestive) heart failure; N17.9 Acute kidney failure, unspecified; E78.5 Hyperlipidemia, unspecified; I16.0 Hypertensive urgency; I25.10 Atherosclerotic heart disease of native coronary artery without angina pectoris; I25.5 Ischemic cardiomyopathy; I73.9 Peripheral vascular disease, unspecified; L40.9 Psoriasis, unspecified; M10.9 Gout, unspecified; M19.90 Unspecified osteoarthritis, unspecified site; N18.9 Chronic kidney disease, unspecified; I25.2 Old myocardial infarction; Z95.5 Presence of coronary angioplasty implant and graft; Z79.82 Long term (current) use of aspirin; Z86.73 Personal history of transient ischemic attack (TIA), and cerebral infarction without residual deficits; Z88.0 Allergy status to penicillin
CPT/HCPCS: 36415; 70450; 71046; 71250; 80048; 80053; 82607; 83735; 83880; 84145; 84443; 84484; 85025; 93005; 93306; 96374; 96375; G0378; J1940; J0360